=== PATIENT | female | born 1965 | race Caucasian/White ===

== ENCOUNTER 2016-04-03 19:49 | Emergency (ER) | payer OTHER ==
[~2016-04-03] VITALS: Ht 165.1 cm; Wt 60.0 kg
[~2016-04-03 19:49] MED LIST: DIVA250ER PO; SERT-132 PO
[2016-04-03 20:06] VITALS: BP 172/75; PULSE 91; RESP 18; TEMP 97.9; O2SAT 96
[2016-04-03] MEDS ORDERED: LANTINJ SQ (20:15)
[2016-04-03] MEDS ORDERED: ACETAMINOPHEN 325 MG TAB PO ONE (20:15)
[2016-04-03] MEDS ORDERED: GABA600T PO (20:15)
[2016-04-03] MEDS ORDERED: LEVE250 PO (20:15)
[2016-04-03] MEDS ORDERED: VESI5TAB PO (20:15)
[2016-04-03] MEDS ORDERED: TYLE325T PO (20:19)
--- NOTE | 2016-04-03 20:20 | PD ---
HPI Chief Complaint: Fall Time Seen by Provider: 20:09 Travel History International Travel<30 days: No Contact w/Intl Traveler<30days: No Traveled to known affect area: No History of Present Illness HPI The patient is 50 years old. She arrives by EMS after a fall and [employer]. The patient accidentally is tripped over a chair. She fell from standing and struck her right parietal occipital scalp causing swelling and tenderness. There is constant pain in the region of the right scalp. Patient states feels as though there is bleeding coming from the ears. No other complaint is offered. She does not take anticoagulants. She has a history of diabetes. She reports a history of intracranial masses. No vomiting since the fall. + LOC reported with immediate return of consciousness. No incontinence or oropharyngeal trauma. PFSH Past Medical History Arthritis: No Asthma: Yes Autoimmune Disease: No Anxiety: Yes Depression: Yes Heart Rhythm Problems: Yes (TACHYCARDIA) Cancer: No Cardiovascular Problems: Yes High Cholesterol: No Chemotherapy: No Chest Pain: Yes Congestive Heart Failure: No COPD: No Cerebrovascular Accident: No Diabetes: Yes Patient Takes Glucophage: No Diminished Hearing: Yes ([place]) Endocrine: Yes GERD: Yes Genitourinary: Yes (HPV) Hiatal Hernia: No Hypertension: Yes Immune Disorder: No Implanted Vascular Access Dvce: Yes Kidney Stones: No Musculoskeletal: No Neurologic: No Psychiatric: Yes Reproductive: No Respiratory: Yes Migraines: No Radiation Therapy: No Renal Failure: No Seizures: No Sickle Cell Disease: No Sleep Apnea: No Thyroid Disease: No Ulcer: No ?: Not Menopausal: Yes : 2 Para: 1 Miscarriage: 0 : 1 Past Surgical History Abdominal Surgery: No AICD: No Arteriovenous Shunt: No Cardiac Surgery: No Ear Surgery: No Endocrine Surgery: No Eye Surgery: No Genitourinary Surgery: No Gynecologic Surgery: No Insulin Pump: No Joint Replacement: Yes (ANKLE ORIF) Neurologic Surgery: Yes (reports tumor removed from brain?) Oral Surgery: Yes (EXTRACTION OF ALL TEETH WITH MANDIBLE SHAVING) Pacemaker: No Thoracic Surgery: No Tonsillectomy: Yes Other Surgery: Yes Social History Alcohol Use: No Tobacco Use: No Substance Use: No Allergies-Medications (Allergen,Severity, Reaction): Coded Allergies: Iodine (Verified Allergy, Severe, SWELLING, 04/03/16) Patient states that she had the swelling and difficulty breathing after eating fish one time. She has eaten fish since that time with no other difficulties. Morphine (Verified Allergy, Severe, HEART COMPLICATIONS, 04/03/16) *MDRO Multi-Drug Resistant Organism (Verified Adverse Reaction, Unknown, ) ESBL + Klebsiella (urine) - 06/19/14 Reported Meds & Prescriptions Reported Meds & Active Scripts Active Tylenol (Acetaminophen) 325 Mg Tab 650 Mg PO ONCE Reported Keppra (Levetiracetam) 250 Mg Tab 250 Mg PO BID Lantus Solostar Pen Inj (Insulin Glargine) 300 Unit/3 Ml Pen 1 Units SQ SLIDING SCALE Gabapentin 600 Mg Tab 1,200 Mg PO BID Vesicare (Solifenacin) 5 Mg Tab 5 Mg PO DAILY Sertraline (Sertraline HCl) 50 Mg Tab 75 Mg PO DAILY Depakote ER (Divalproex Sodium) 250 Mg Celia 250 Mg PO BID Review of Systems Except as stated in HPI: all other systems reviewed are Neg General / Constitutional: No: Fever Neurologic: Positive: Other (history of neurosurgery secondary to meningioma) Physical Exam Narrative GENERAL: Pleasant 48-year-old female speaking full sentences alert and oriented 3 well-nourished well-developed SKIN: Warm and dry. HEAD: Atraumatic. Normocephalic. Approximately 5 cm cephalhematoma along the right occipital scalp. EYES: Pupils equal and round. No scleral icterus. No injection or drainage. ENT: No nasal bleeding or discharge. Mucous membranes pink and moist. Cerumen in the right ear. TM clearly visualized the left side with no air-fluid level. No ecchymosis about the eyes. NECK: Trachea midline. No JVD. CARDIOVASCULAR: Regular rate and rhythm. No murmur appreciated. RESPIRATORY: No accessory muscle use. Clear to auscultation. Breath sounds equal bilaterally. GASTROINTESTINAL: Abdomen soft, non-tender, nondistended. Hepatic and splenic margins not palpable. MUSCULOSKELETAL: No obvious deformities. No clubbing. No cyanosis. No edema. NEUROLOGICAL: Awake and alert. No obvious cranial nerve deficits. Motor grossly within normal limits. Normal speech. PSYCHIATRIC: Appropriate mood and affect; insight and judgment normal. Data Data Last Documented VS Vital Signs Date Time Temp Pulse Resp B/P Pulse Ox O2 Delivery O2 Flow Rate FiO2 04/03/16 22:08 18 04/03/16 20:58 90 174/72 04/03/16 20:08 Room Air 04/03/16 20:[address] Brain W/O Iv Contrast(Rout) (04/03/16 20:09) Acetaminophen (Tylenol) (04/03/16 20:15) MDM Medical Decision Making Medical Screen Exam Complete: Yes Emergency Medical Condition: Yes Medical Record Reviewed: Yes Differential Diagnosis Contusion, cephalohematoma, closed injury, intracranial hemorrhage, skull fracture Narrative Course Last [address] 04/03/162008 Signed Impressions: Service Date/Time: Sunday, April 03, 2016 20:43 - CONCLUSION: Small right-sided cephalhematoma but no acute fracture. Stable postsurgical changes in the left posterior parietal bone with subjacent encephalomalacia changes. No acute intracranial process. Jaylan Rodriguez MD The patient is resting comfortably and feels better, is alert and in no distress. The patients results and examination findings were discussed. The repeat examination is unremarkable and benign. The history, exam, diagnostic testing, and current condition do not suggest any significant pathology to warrant further testing, continued ED treatment, admission, or surgical evaluation at this point. The vital signs have been stable. The patient does not have uncontrollable pain, intractable vomiting, or other significant symptoms. The patient's condition is stable and appropriate for discharge. The patient will pursue further outpatient evaluation with a primary care physician or other designated or consulting physician as indicated in the discharge instructions. The patient expressed understanding and was agreeable with this plan. Diagnosis Primary Impression: Fall Qualified Code: W19.XXXA - Fall, initial encounter Additional Impressions: Traumatic cephalohematoma Qualified Code: S00.93XA - Traumatic cephalohematoma, initial encounter [facility]I (closed head injury) Qualified Code: S09.90XA - CHI (closed head injury), initial encounter Referrals: DR MALDONADO 2 days Additional Instructions: You have a choice when it comes to health care, and we are glad that you chose [facility]. Hopefully, we have met your expectations on today's visit. You are welcome to return to [facility] at any time, as we are committed to meeting the health care needs of our community. Med/Other Pt SpecificInfo: Prescription(s) given Scripts Acetaminophen (Tylenol)325 Mg Ses004 Mg PO ONCE #1 TAB Ref 0 Prov:Pb Pak MD 04/03/16 Disposition: 01 DISCHARGE HOME Condition: Stable Pb Pak MD Apr 03, 2016 20:20
[2016-04-03 20:58] VITALS: BP 174/72; PULSE 90; RESP 18
--- NOTE | 2016-04-03 21:03 | RADRPT ---
EXAM DATE/TIME: 04/03/2016 20:43 [facility] COMPARISON: CT BRAIN W/O CONTRAST, April 14, 2015, 17:20. INDICATIONS : Trauma; fall. Patient complains of pain in the right occipital region. RADIATION DOSE: 33.49 CTDIvol (mGy) MEDICAL HISTORY : Hypertension. Diabetes mellitus type 2. Cardiovascular disease SURGICAL HISTORY : Craniotomy. ENCOUNTER: Initial ACUITY: 1 day PAIN SCALE: 3/10 LOCATION: cranial TECHNIQUE: Multiple contiguous axial images were obtained of the head. Using automated exposure control and adj ustment of the mA and/or kV according to patient size, radiation dose was kept as low as reasonably a chievable to obtain optimal diagnostic quality images. FINDINGS: CEREBRUM: The ventricles are normal for age. Small area of encephalomalacia in the posterior left temporal lob e subjacent to a prior craniotomy. No evidence of midline shift, mass lesion, hemorrhage or acute inf arction. No extra-axial fluid collections are seen. POSTERIOR FOSSA: The cerebellum and brainstem are intact. The 4th ventricle is midline. The cerebellopontine angle i s unremarkable. EXTRACRANIAL: The visualized portion of the orbits is intact. Small cephalhematoma over the perivertex right assistant pressman ior parietal region SKULL: The calvaria is intact. No evidence of skull fracture. CONCLUSION: Small right-sided cephalhematoma but no acute fracture. Stable postsurgical changes in the left posterior parietal bone with subjacent encephalomalacia de leon es. No acute intracranial process. Jaylan Rodriguez MD on April 03, 2016 at 20:58 Board Certified Radiologist. This report was verified electronically.
[2016-04-03 22:08] VITALS: RESP 18
== END 2016-04-03 22:09 | disposition home or self-care (01) ==
LOC: NEPE 19:49
DX: S06.2X0A Diffuse traumatic brain injury without loss of consciousness, initial encounter (principal); S09.90XA Unspecified injury of head, initial encounter; W18.09XA Striking against other object with subsequent fall, initial encounter; R00.0 Tachycardia, unspecified; I10 Essential (primary) hypertension; Y92.512 Supermarket, store or market as the place of occurrence of the external cause
CPT/HCPCS: 70450

== ENCOUNTER 2016-09-07 12:21 | Emergency (ER) | payer OTHER ==
[~2016-09-07] VITALS: Ht 162.6 cm; Wt 60.0 kg
[~2016-09-07 12:21] MED LIST changes: +GABA600T PO; +LANTINJ SQ; +LEVE250 PO; +TYLE325T PO; +VESI5TAB PO
[2016-09-07 12:23] VITALS: BP 186/98; PULSE 124; RESP 21; TEMP 97.8; O2SAT 100
--- NOTE | 2016-09-07 12:29 | PD ---
Physical Exam Date Seen by Provider: Sep 07, 2016 Time Seen by Provider: 12:25 Data Data Last Documented VS Vital Signs Date Time Temp Pulse Resp B/P Pulse Ox O2 Delivery O2 Flow Rate FiO2 09/07/16 12:23 97.8 124 21 186/98 100 MDM Supervised Visit with DIAZ: No Narrative Course 50 YO F with complaint of forgetfulness, tremor, ataxia, stuttering x 1 month. Unsure of chronicity of onset. Denies pain, ROQUE, CP. Hx brain lesion, insulin dependant DM. Followed by Dr. Patel, neuro. Vitals reviewed. Patient seen in triage, awaiting bed placement. Yandy Cheatham Sep 07, 2016 12:29
[2016-09-07 13:53] VITALS: BP 133/80; PULSE 78; RESP 18; O2SAT 98
--- NOTE | 2016-09-07 14:03 | PD ---
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 The patient states that since she had the meningioma resection she has had some degree of memory loss however states that this has been worsening over the past month. States that today she got lost on her way to work which she goes to work every day and takes the same route every day. States that she became very flustered and upset and her coworker called her rehabilitation doctor Dr. Patel and she was instructed to come to the emergency department. The patient states that she's had worsening speech and stuttering recently as well. She denies any fever, chills, nausea, vomiting, diarrhea, abdominal pain, chest pain, shortness of breath, headache, dizziness, numbness or tingling, one-sided weakness. Denies any anticoagulation. States that she had an MRI within the last year. PCP Dr. Miranda. No other complaints. PFSH Past Medical History Arthritis: No Asthma: Yes Autoimmune Disease: No Anxiety: Yes Depression: Yes Heart Rhythm Problems: Yes (TACHYCARDIA) Cancer: No Cardiovascular Problems: Yes High Cholesterol: No Chemotherapy: No Chest Pain: Yes Congestive Heart Failure: No COPD: No Cerebrovascular Accident: No Diabetes: Yes Patient Takes Glucophage: No Diminished Hearing: Yes ([place]) Endocrine: Yes Gastrointestinal Disorders: No GERD: Yes Genitourinary: Yes (HPV) Headaches: No Hiatal Hernia: No Heparin Induced Thrombocytopen: No Hypertension: Yes Immune Disorder: No Implanted Vascular Access Dvce: Yes Kidney Stones: No Musculoskeletal: No Neurologic: No Psychiatric: Yes Reproductive: No Respiratory: Yes Migraines: No Radiation Therapy: No Renal Failure: No Seizures: No Sickle Cell Disease: No Sleep Apnea: No Thyroid Disease: No Ulcer: No ?: Not Menopausal: Yes : 2 Para: 1 Miscarriage: 0 : 1 Past Surgical History Abdominal Surgery: No AICD: No Arteriovenous Shunt: No Cardiac Surgery: No Ear Surgery: No Endocrine Surgery: No Eye Surgery: No Genitourinary Surgery: No Gynecologic Surgery: No Insulin Pump: No Joint Replacement: Yes (ANKLE ORIF) Neurologic Surgery: Yes (reports tumor removed from brain?) Oral Surgery: Yes (EXTRACTION OF ALL TEETH WITH MANDIBLE SHAVING) Pacemaker: No Thoracic Surgery: No Tonsillectomy: Yes Other Surgery: Yes Social History Alcohol Use: No Tobacco Use: No Substance Use: No Allergies-Medications (Allergen,Severity, Reaction): Coded Allergies: Iodine (Verified Allergy, Severe, SWELLING, 09/07/16) Patient states that she had the swelling and difficulty breathing after eating fish one time. She has eaten fish since that time with no other difficulties. Morphine (Verified Allergy, Severe, HEART COMPLICATIONS, 09/07/16) *MDRO Multi-Drug Resistant Organism (Verified Adverse Reaction, Unknown, ) ESBL + Klebsiella (urine) - 06/19/14 Reported Meds & Prescriptions Reported Meds & Active Scripts Active Tylenol (Acetaminophen) 325 Mg Tab 650 Mg PO ONCE Reported Keppra (Levetiracetam) 250 Mg Tab 250 Mg PO BID Lantus Solostar Pen Inj (Insulin Glargine) 300 Unit/3 Ml Pen 1 Units SQ SLIDING SCALE Gabapentin 600 Mg Tab 1,200 Mg PO BID Vesicare (Solifenacin) 5 Mg Tab 5 Mg PO DAILY Sertraline (Sertraline HCl) 50 Mg Tab 75 Mg PO DAILY Depakote ER (Divalproex Sodium) 250 Mg Celia 250 Mg PO BID Review of Systems Except as stated in HPI: all other systems reviewed are Neg Physical Exam Narrative GENERAL: Well-nourished and well-developed pleasant female patient in no acute distress however she is slightly anxious and upset. SKIN: Warm and dry. HEAD: Normocephalic and atraumatic. EYES: No injection, drainage, or hyphema noted. PERRLA. EOMI. ENT: No nasal drainage noted. Oropharynx is clear. NECK: Supple and the trachea is midline. CARDIOVASCULAR: Regular rate and rhythm. RESPIRATORY: Breath sounds are equal bilaterally with no accessory muscle use, wheezing, rhonchi, or crackles. GASTROINTESTINAL: Abdomen is soft, non-tender, and nondistended. MUSCULOSKELETAL: No obvious deformities, swelling, cyanosis, or ecchymosis is present throughout the upper and lower extremities. Patient has full range of motion without any signs of neurovascular compromise. Strength 5/5 upper and lower extremities equal bilaterally. NEUROLOGICAL: Awake, alert, and oriented. Speech impediment however clear fluent speech. Normal gait. Normal finger to nose test. Normal rapid alternating movements. Normal [id number] test. Cranial nerves are grossly intact. Data Data Last Documented VS Vital Signs Date Time Temp Pulse Resp B/P Pulse Ox O2 Delivery O2 Flow Rate FiO2 09/07/16 14:35 85 15 132/76 99 Room Air 09/07/16 12:23 97.8 Orders Complete Blood Count With Diff (09/07/16 14:01) Comprehensive Metabolic Panel (09/07/16 14:01) Prothrombin Time / Inr (Pt) (09/07/16 14:01) Act Partial Throm Time (Ptt) (09/07/16 14:01) Urinalysis - C+S If Indicated (09/07/16 14:01) Ct Brain W/O Iv Contrast(Rout) (09/07/16 14:01) Blood Glucose (09/07/16 14:01) Ecg Monitoring (09/07/16 14:01) Iv Access Insert/Monitor (09/07/16 14:01) Oximetry (09/07/16 14:01) Sodium Chloride 0.9% Flush (Ns Flush) (09/07/16 14:15) Insulin Human Regular Inj (Novolin R Inj (09/07/16 15:15) Labs Laboratory Tests Test 09/07/16 09/07/16 14:30 16:00 Prothrombin Time 10.2 SEC Prothromb Time International 0.9 RATIO Ratio Activated Partial 23.7 SEC Thromboplast Time Urine Color LIGHT-YELLOW Urine Turbidity CLEAR Urine pH 7.0 Urine Specific [place] 1.033 Urine Protein NEG mg/dL Urine Glucose (UA) 1000 mg/dL Urine Ketones NEG mg/dL Urine Occult Blood NEG Urine Nitrite NEG Urine Bilirubin NEG Urine Urobilinogen LESS THAN 2.0 MG/DL Urine Leukocyte Esterase NEG Urine RBC LESS THAN 1 /hpf Urine WBC LESS THAN 1 /hpf Urine Squamous Epithelial 2 /hpf Cells Urine Mucus FEW /lpf Microscopic Urinalysis Comment CATH-CULT NOT IND Sodium Level 137 MEQ/L Potassium Level 4.8 MEQ/L Chloride Level 106 MEQ/L Carbon Dioxide Level 23.3 MEQ/L Anion Gap 8 MEQ/L Blood Urea Nitrogen 12 MG/DL Creatinine 0.90 MG/DL Estimat Glomerular Filtration 66 ML/MIN Rate Random Glucose 471 MG/DL Calcium Level 8.4 MG/DL Total Bilirubin 0.4 MG/DL Aspartate Amino Transf 18 U/L (AST/SGOT) Alanine Aminotransferase 13 U/L (ALT/SGPT) Alkaline Phosphatase 87 U/L Total Protein 7.1 GM/DL Albumin 3.2 GM/DL White Blood Count 6.3 TH/MM3 Red Blood Count 4.53 MIL/MM3 Hemoglobin 13.8 GM/DL Hematocrit 42.5 % Mean Corpuscular Volume 93.9 FL Mean Corpuscular Hemoglobin 30.5 PG Mean Corpuscular Hemoglobin 32.5 % Concent Red Cell Distribution Width 14.2 % Platelet Count 235 TH/MM3 Mean Platelet Volume 8.5 FL Neutrophils (%) (Auto) 50.4 % Lymphocytes (%) (Auto) 35.9 % Monocytes (%) (Auto) 10.9 % Eosinophils (%) (Auto) 2.3 % Basophils (%) (Auto) 0.5 % Neutrophils # (Auto) 3.2 TH/MM3 Lymphocytes # (Auto) 2.2 TH/MM3 Monocytes # (Auto) 0.7 TH/MM3 Eosinophils # (Auto) 0.1 TH/MM3 Basophils # (Auto) 0.0 TH/MM3 CBC Comment DIFF FINAL Differential Comment MDM Medical Decision Making Medical Screen Exam Complete: Yes Emergency Medical Condition: Yes Differential Diagnosis Anxiety versus mood disorder versus impaired cognition versus brain mass versus edema Narrative Course 50-year-old female with a history of atypical meningioma brain mass status post resection presents to the emergency department for evaluation of memory loss and stuttering speech. Patient is afebrile. She was initially tachycardic in triage with a heart rate of 124 bpm. Now her heart rate is 78 bpm. Otherwise vital signs within normal limits. Physical examination is essentially unremarkable. No focal neurologic deficits. IV access was obtained, labs have been drawn and sent. Patient is placed on cardiac telemetry of pulse oximetry monitoring. CT of the head is been ordered and is pending. CBC is unremarkable. CMP shows hyperglycemia with a glucose of 471 otherwise unremarkable. Coags are unremarkable. Urinalysis shows glucosuria and few mucus but is otherwise unremarkable. Head CT is negative for any acute abnormalities. Labs and imaging are reassuring, no acute abnormalities noted besides patient's hyperglycemia. She is reporting that her sugar is typically around 300-400. Patient is administered 10 units of regular insulin subcutaneously. The patient 's memory loss and anxiety is likely secondary to her meningioma and postop complications. She is advised to follow up as an outpatient with her primary care physician. Patient verbalizes understanding and agreement with treatment plan. I discussed the case with my attending physician Dr. Mccollum who is aware of the patients history, physical examination findings, and treatment plan. Diagnosis Primary Impression: Memory difficulties Additional Impressions: Hyperglycemia Atypical meningioma of brain Referrals: Primary Care Physician Patient Instructions: General Instructions, Memory Loss in Older Adults (GEN) Additional Instructions: Follow-up with your Primary Care Physician. Return to the ED for any acute worsening of symptoms. Med/Other Pt SpecificInfo: No Change to Meds Disposition: 01 DISCHARGE HOME Condition: Stable Kaylen Bingham Sep 07, 2016 14:03
[2016-09-07] MEDS ORDERED: SODIUM CHLORIDE 0.9% FLUSH 5 ML FLUSH IV FLUSH PRN (14:15)
[2016-09-07 14:35] VITALS: BP 132/76; PULSE 85; RESP 15; O2SAT 99
[2016-09-07 14:45] LABS: BLOOD, URINE NEG (NEG); COMMENT (UR) CATH-CULT NOT IND; CULTURE IF INDICATED CATH CULTURE NOT IND; GLUCOSE,URINE 1000 mg/dL (NEG); KETONE, URINE NEG (NEG); MUCUS URINE FEW /lpf (OCC); NITRITE,URINE NEG (NEG); SQUAMOUS EPITHELIAL CELL URINE 2 /hpf (0-5); URINE COLOR LIGHT-YELLOW (YELLW/STRAW)
--- NOTE | 2016-09-07 14:50 | RADRPT ---
EXAM DATE/TIME: 09/07/2016 14:36 [facility] COMPARISON: CT BRAIN W/O CONTRAST, April 03, 2016, 20:43. INDICATIONS : Evaluate for altered mental status. RADIATION DOSE: 56.35 CTDIvol (mGy) MEDICAL HISTORY : Hypertension. Cardiovascular disease Tachycardia, History of brain lesion. SURGICAL HISTORY : Craniotomy. ENCOUNTER: Initial ACUITY: 1 month PAIN SCALE: 3/10 LOCATION: Bilateral cranial TECHNIQUE: Multiple contiguous axial images were obtained of the head. Using automated exposure control and adj ustment of the mA and/or kV according to patient size, radiation dose was kept as low as reasonably a chievable to obtain optimal diagnostic quality images. DICOM format image data is available electro nically for review and comparison. FINDINGS: Stable old left occipital and remote craniotomy changes in this region are identified. No acute fract ures or there is a right parietal calcified meningioma suspected, unchanged with no underlying edema. No evidence of intracranial hemorrhage or acute infarction. CONCLUSION: No acute disease. Gareth Bronson MD on September 07, 2016 at 14:44 Board Certified Radiologist. This report was verified electronically.
[2016-09-07 14:56] LABS: APTT (PATIENT) 23.7 SEC (24.3-30.1); INTERNATIONAL NORMALIZED RATIO 0.9 RATIO; PROTHROMBIN TIME - PATIENT 10.2 SEC (9.8-11.6)
[2016-09-07 14:58] LABS: ALKALINE PHOSPHATASE 87 U/L (45-117); ALT (GPT) 13 U/L (10-53); ANION GAP 8 MEQ/L (5-15); AST (GOT) 18 U/L (15-37); BICARBONATE 23.3 MEQ/L (21.0-32.0); BLOOD UREA NITROGEN 12 MG/DL (7-18); CHLORIDE 106 MEQ/L (98-107); GLOMERULAR FILTRATION RATE 66 ML/MIN (>89); POTASSIUM 4.8 MEQ/L (3.5-5.1); SODIUM (NA) 137 MEQ/L (136-145); TOTAL BILIRUBIN ADULT 0.4 MG/DL (0.2-1.0)
[2016-09-07] MEDS ORDERED: INSULIN HUMAN REGULAR 1,000 UNITS/10 ML VIAL SQ ONE (15:15)
[2016-09-07 16:20] LABS: AUTOMATED NEUTROPHIL # 3.2 TH/MM3 (1.8-7.7); BASOPHIL % 0.5 % (0.0-2.0); EOSINOPHIL # 0.1 TH/MM3 (0-0.4); EOSINOPHIL % 2.3 % (0.0-4.0); HEMATOCRIT 42.5 % (35.0-46.0); HEMO FLAGS DIFF FINAL; LYMPH % 35.9 % (9.0-44.0); LYMPHOCYTE # 2.2 TH/MM3 (1.0-4.8); MEAN CELL VOLUME 93.9 FL (80.0-100.0); MEAN CORPUSCULAR HEMOGLOBIN 30.5 PG (27.0-34.0); MEAN CORPUSCULAR HGB CONC 32.5 % (32.0-36.0); MONO % 10.9 % (0.0-8.0); NEUT % 50.4 % (16.0-70.0); PLATELET COUNT 235 TH/MM3 (150-450); RED BLOOD COUNT 4.53 MIL/MM3 (4.00-5.30); RED CELL DISTRIBUTION WIDTH 14.2 % (11.6-17.2); WHITE BLOOD COUNT 6.3 TH/MM3 (4.0-11.0)
[2016-09-07 16:37] VITALS: BP 132/76
== END 2016-09-07 16:53 | disposition home or self-care (01) ==
LOC: NEPC 12:21
DX: D32.0 Benign neoplasm of cerebral meninges (principal); I10 Essential (primary) hypertension; F98.5 Adult onset fluency disorder; R56.9 Unspecified convulsions; E11.40 Type 2 diabetes mellitus with diabetic neuropathy, unspecified; E11.65 Type 2 diabetes mellitus with hyperglycemia; R00.0 Tachycardia, unspecified; Z79.4 Long term (current) use of insulin; Z98.890 Other specified postprocedural states
CPT/HCPCS: 70450; 80053; 81001; 85025; 85610; 85730; 96372; 99285; J1815

== ENCOUNTER 2016-09-16 08:51 | Inpatient (IN) | payer OTHER ==
[~2016-09-16] VITALS: Ht 160 cm; Wt 71.7 kg
[2016-09-16 09:02] VITALS: BP 164/78; PULSE 89; RESP 21; TEMP 98.7; O2SAT 100
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
[2016-09-16] MEDS ORDERED: ONDANSETRON HCL 4 MG/2 ML VIAL IV ONE (10:30)
[2016-09-16] MEDS ORDERED: SODIUM CHLOR 0.9% 1000 ML INJ 1,000 ML IV ONE (10:30)
[2016-09-16] MEDS ORDERED: HYDROmorphone HCL PF 1 MG/ML VIAL IVS ONE ×2 (10:30→12:45)
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
[2016-09-16 10:54] LABS: AUTOMATED NEUTROPHIL # 6.4 TH/MM3 (1.8-7.7); BASOPHIL % 0.4 % (0.0-2.0); EOSINOPHIL # 0.1 TH/MM3 (0-0.4); HEMO FLAGS DIFF FINAL; LYMPH % 14.9 % (9.0-44.0); LYMPHOCYTE # 1.3 TH/MM3 (1.0-4.8); MEAN CELL VOLUME 92.5 FL (80.0-100.0); MEAN CORPUSCULAR HEMOGLOBIN 30.7 PG (27.0-34.0); MEAN CORPUSCULAR HGB CONC 33.2 % (32.0-36.0); MONO % 8.8 % (0.0-8.0); NEUT % 74.9 % (16.0-70.0); PLATELET COUNT 233 TH/MM3 (150-450); RED BLOOD COUNT 4.32 MIL/MM3 (4.00-5.30); RED CELL DISTRIBUTION WIDTH 13.9 % (11.6-17.2); WHITE BLOOD COUNT 8.6 TH/MM3 (4.0-11.0)
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
[2016-09-16 11:15] LABS: BICARBONATE 24.8 MEQ/L (21.0-32.0)
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
[2016-09-16] MEDS ORDERED: LACTULOSE SYRUP 20 GM/30 ML CUP PO PRN (13:30)
[2016-09-16] MEDS ORDERED: SENNOSIDES 8.6 MG TAB PO PRN (13:30)
[2016-09-16] MEDS ORDERED: SODIUM CHLORIDE 0.9% FLUSH 10 ML FLUSH IV FLUSH PRN (13:30)
[2016-09-16] MEDS ORDERED: ACETAMINOPHEN 325 MG TAB PO PRN (13:30)
[2016-09-16] MEDS ORDERED: NALOXONE HCL 0.4 MG/ML AMP IV PRN (13:30)
[2016-09-16] MEDS ORDERED: MAGNESIUM HYDROXIDE SUSP 30 ML CUP PO PRN (13:30)
[2016-09-16] MEDS ORDERED: MORPHINE SULFATE 4 MG/ML INJ IV PUSH PRN (13:30)
[2016-09-16] MEDS ORDERED: BISACODYL 10 MG SUPP RECTAL PRN (13:30)
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
[2016-09-16] MEDS ORDERED: GLUCAGON 1 MG/ML VIAL OTHER PRN (14:30)
[2016-09-16] MEDS ORDERED: SODIUM CHLOR 0.9% 1000 ML INJ 1,000 ML IV SCH (14:30)
[2016-09-16] MEDS ORDERED: DEXTROSE 50% IN WATER 50 ML VIAL(D50) IV PUSH PRN (14:30)
[2016-09-16 15:00] VITALS: BP 148/73; PULSE 111; RESP 10; O2SAT 95
[2016-09-16] MEDS: INSULIN NovoLIN REGULAR SUPPLEMENTAL SCALE SQ SCH ×2 (16:00→21:00)
[2016-09-16] MEDS ORDERED: GENTAMICIN SULFATE 80 MG/2 ML VIAL ONE (17:17)
[2016-09-16] MEDS: ONDANSETRON HCL 4 MG/2 ML VIAL IVP PRN (17:25)
[2016-09-16] MEDS ORDERED: VANCOMYCIN HCL 1000 MG VIAL ONE (17:54)
[2016-09-16] MEDS ORDERED: FLUMAZENIL 0.5 MG/5 ML VIAL IV PUSH PRN (18:00)
[2016-09-16] MEDS ORDERED: DO NOT ADM ANY ANTICOAGULANT DRUGS PRN (18:44)
[2016-09-16] MEDS ORDERED: Post-op Orders (for Pharmacy) MISC XX ONE (18:45)
[2016-09-16] MEDS ORDERED: SODIUM CHLORIDE 0.9% FLUSH 5 ML FLUSH IVF PRN (18:45)
[2016-09-16] MEDS ORDERED: diphenhydrAMINE HCL 25 MG CAP PO PRN (18:45)
--- NOTE | 2016-09-16 18:45 | PD.OP ---
cc: James Cleaning MD Operative Report Date of Surgery: Sep 16, 2016 Preoperative Diagnosis: Right tibia bicondylar plateau fracture Postoperative Diagnosis: Procedure: Closed reduction right tibial plateau fracture, external fixation right lower extremity Anesthesia: Gen. Surgeon: James Cleaning Solder Technician(s): SEBASTIEN Kim PA-C The surgical procedure was assisted by my physician construction management assistant. My P.A. presence was necessary throughout this case for the manipulation and positioning of the surgical extremity. My P.A. was assisting me throughout the duration of this procedure. The skill set of a physician construction management assistant was medically necessary to complete this procedure. During the surgical case the ruling technician was working at the back table and the physician construction management assistant was directly assisting me. Operation and Findings: This patient sustained an injury resulting in comminuted fractures of [right tibia plateau]. Patient was seen and evaluated preoperatively and found to have too much swelling to proceed with open reduction internal fixation. Risk and benefits of surgery were discussed in depth with patient and informed consent was confirmed. Surgical site was marked. Patient was brought to operating room and placed on the OR table. Patient was given IV sedation and GETA. Patient received IV antibiotics and timeout procedure was performed. Operative leg was prepped with alcohol followed by Hibiclens and draped in the usual sterile fashion. Two small incisions were made along the anterior femur and the tibia. Soft tissue was dissected bluntly. Cannulas were placed down to the cortex of bone. Pin sites were predrilled. Synthes ROQUE-coated pins were placed into the femur and tibia. Fluoroscopy was used to confirm appropriate pin placement. An external fixator construct was now created with clamps and bars. Next attention was turned to reduction. Traction was applied. Fracture was manipulated. Good alignment of the fracture was obtained. Fluoroscopy was used to confirm appropriate alignment of fracture. The external fixator was now tightened to hold reduction. Sterile dressings were applied. Patient was awakened and transferred to recovery room in stable condition. The soft tissue was reevaluated. Patient did have swelling around the knee and calf but compartments were soft and compressible with no signs of compartment syndrome. James Cleaning MD Sep 16, 2016 18:45
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
[2016-09-16] MEDS ORDERED: MIDAZOLAM HCL 2 MG/2 ML VIAL ONE (18:55)
[2016-09-16] MEDS ORDERED: fentaNYL CITRATE 250 MCG/5 ML AMP ONE (18:56)
[2016-09-16 19:00] VITALS: O2SAT 98
[2016-09-16] MEDS ORDERED: *MEPERIDINE 25 MG INJ VIAL PERIprocedural Use ONLY ONE (19:06)
--- NOTE | 2016-09-16 19:26 | RADRPT ---
EXAM DATE/TIME: 09/16/2016 18:24 [facility] COMPARISON: TIBIA/FIBULA RIGHT (AP/LAT), September 16, 2016, 10:50. INDICATIONS : External fixation of right tibial plateau. MEDICAL HISTORY : None. SURGICAL HISTORY : None. ENCOUNTER: Initial ACUITY: 1 day PAIN SCORE: Non-responsive. LOCATION: Right Tib/fib. FINDINGS: 2 images are recorded digitally the operating room using C-arm. There is a transverse fracture of th e proximal diametaphysis of the tibia with mild anterior angulation. CONCLUSION: Intraoperative images. Alvaro Madden MD on September 16, 2016 at 19:22 Board Certified Radiologist. This report was verified electronically.
[2016-09-16] MEDS: RESP: ALBUTEROL 2.5 MG/IPRATROPIUM 0.5 MG NEB (SCH) NEB ×2 (19:36→23:32)
[2016-09-16] MEDS: LACTATED RINGER'S 1000 ML INJ 1,000 ML IV SCH ×2 (20:00→22:46)
[2016-09-16] MEDS ORDERED: MULTIVITAMIN INJ 10 ML, FOLIC ACID INJ 1 MG in SODIUM CHLORID 0.9% 500 ML INJ 500 ML IV SCH (20:00)
[2016-09-16] MEDS ORDERED: THIAMINE INJ 100 MG in SODIUM CHLORIDE 0.9% INJ 100 ML IV SCH (20:00)
[2016-09-16 21:00] VITALS: BP 145/89; PULSE 104; RESP 18; TEMP 97.9; O2SAT 99
[2016-09-16] MEDS: SODIUM CHLORIDE 0.9% FLUSH 5 ML FLUSH IVF SCH (21:00)
[2016-09-16] MEDS ORDERED: SODIUM CHLORIDE 0.9% FLUSH 10 ML FLUSH IV FLUSH SCH (21:00)
[2016-09-16] MEDS: DOCUSATE SODIUM 50 MG/SENNA 8.6 MG TAB PO SCH (21:00)
[2016-09-16 22:45] LABS: HDL CHOLESTEROL 51.5 MG/DL (40.0-60.0)
[2016-09-16] MEDS: GABAPENTIN 400 MG CAP PO SCH (22:48)
[2016-09-16] MEDS: levETIRAcetam 250 MG TAB PO SCH (22:48)
[2016-09-16] MEDS: ACETAMINOPHEN/HYDROcodone 325 MG/10 MG TAB PO PRN (22:48)
[2016-09-16] MEDS: guaiFENesin E.R. 600 MG TAB PO SCH (22:49)
[2016-09-16] MEDS: KETOROLAC TROMETHAMINE 30 MG/ML (IVP) VIAL IVP SCH (22:50)
[2016-09-16] MEDS: DIVALPROEX SODIUM E.R. 250 MG TAB PO SCH (22:50)
[2016-09-17] VITALS (7 sets, daily range): BP systolic 98–156; BP diastolic 60–79; PULSE 83–100; RESP 16–19; TEMP 97–99.9; O2SAT 92–100
[2016-09-17] MEDS: RESP: ALBUTEROL 2.5 MG/IPRATROPIUM 0.5 MG NEB (SCH) NEB ×6 (02:58→23:11)
[2016-09-17] MEDS: ACETAMINOPHEN/HYDROcodone 325 MG/10 MG TAB PO PRN ×3 (04:46→17:06)
[2016-09-17] MEDS: KETOROLAC TROMETHAMINE 30 MG/ML (IVP) VIAL IVP SCH ×3 (06:33→21:38)
[2016-09-17] MEDS: INSULIN NovoLIN REGULAR SUPPLEMENTAL SCALE SQ SCH ×4 (06:34→21:50)
--- NOTE | 2016-09-17 06:52 | PD.ORT.PN ---
Subjective Subjective Remarks POd 1 s/p exfix right tibial plateau fx -doing well. pain controlled. no complaints. Objective Vitals Vital Signs Date Time Temp Pulse Resp B/P Pulse Ox O2 Delivery O2 Flow Rate FiO2 09/17/16 00:10 98.2 100 18 156/79 100 09/16/16 23:32 Nasal Cannula 09/16/16 21:00 97.9 104 18 145/89 99 09/16/16 20:15 98.8 106 12 147/85 98 Nasal Cannula 2 09/16/16 20:00 105 12 152/82 98 Nasal Cannula 2 09/16/16 19:45 111 12 157/81 99 Nasal Cannula 3 09/16/16 19:30 114 12 156/76 100 Nasal Cannula 3 09/16/16 19:15 108 12 170/81 99 Nasal Cannula 4 09/16/16 19:00 106 10 163/87 98 Nasal Cannula 4 09/16/16 18:47 96.9 99 10 133/69 98 Nasal Cannula 4 09/16/16 15:00 111 10 148/73 95 Nasal Cannula 2 09/16/16 09:02 98.7 89 21 164/78 100 I/O 09/16/16 09/16/16 09/16/16 09/17/16 09/17/16 09/17/16 07:00 15:00 23:00 07:00 15:00 23:00 Intake Total 1620 ml 480 ml Output Total 100 ml Balance 1520 ml 480 ml Intake Oral 520 ml 480 ml IV Total 100 ml Other 1000 ml Output Urine Total 50 ml Estimated Blood Loss 50 ml # Voids 4 5 # Bowel Movements 1 1 Result Diagram: 09/16/16 1020 09/16/16 1020 Objective Remarks RLE: +exfix. pin sites clean. NVI with good dorsiflexion. +swelling but compartments soft Assessment & Plan Assessment and Plan 1) right Tibial Plateau fx s/p exfix - POD 1 -NWB -elevate -pin care BID -ice -npo after MN tuesday -plan for potential surgery tuesday -hold lovenox after Tuesday AM dose Chucho Rees Sep 17, 2016 06:52
[2016-09-17 07:25] LABS: HEMATOCRIT 34.7 % (35.0-46.0); REVIEW FLAG FINAL
[2016-09-17] MEDS: SODIUM CHLORIDE 0.9% FLUSH 5 ML FLUSH IVF SCH ×2 (09:00→21:38)
[2016-09-17 09:30] LABS: AUTOMATED NEUTROPHIL # 6.4 TH/MM3 (1.8-7.7); BASOPHIL % 0.2 % (0.0-2.0); EOSINOPHIL % 0.2 % (0.0-4.0); HEMATOCRIT 33.2 % (35.0-46.0); HEMO FLAGS DIFF FINAL; LYMPHOCYTE # 1.9 TH/MM3 (1.0-4.8); MEAN CELL VOLUME 93.8 FL (80.0-100.0); MEAN CORPUSCULAR HEMOGLOBIN 30.5 PG (27.0-34.0); MEAN CORPUSCULAR HGB CONC 32.5 % (32.0-36.0); MONO % 15.5 % (0.0-8.0); NEUT % 65.1 % (16.0-70.0); PLATELET COUNT 215 TH/MM3 (150-450); RED BLOOD COUNT 3.54 MIL/MM3 (4.00-5.30); RED CELL DISTRIBUTION WIDTH 13.9 % (11.6-17.2); WHITE BLOOD COUNT 9.8 TH/MM3 (4.0-11.0)
[2016-09-17 09:57] LABS: BICARBONATE 24.4 MEQ/L (21.0-32.0); POTASSIUM 3.3 MEQ/L (3.5-5.1)
[2016-09-17] MEDS: GABAPENTIN 400 MG CAP PO SCH ×2 (09:59→21:38)
[2016-09-17] MEDS: TOLTERODINE TARTRATE 2 MG CAP LA PO SCH (09:59)
[2016-09-17] MEDS: guaiFENesin E.R. 600 MG TAB PO SCH ×2 (09:59→21:38)
[2016-09-17] MEDS: levETIRAcetam 250 MG TAB PO SCH ×2 (09:59→21:38)
[2016-09-17] MEDS: DOCUSATE SODIUM 50 MG/SENNA 8.6 MG TAB PO SCH ×2 (09:59→21:38)
[2016-09-17] MEDS: FOLIC ACID 1 MG TAB PO SCH (09:59)
[2016-09-17] MEDS: DIVALPROEX SODIUM E.R. 250 MG TAB PO SCH ×2 (10:00→21:38)
[2016-09-17] MEDS: SERTRALINE HCL 50 MG TAB PO SCH (10:00)
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
--- NOTE | 2016-09-17 13:40 | EKG ---
Date Performed: 09/16/2016 Time Performed: 15:37:09 PTAGE: 50 years EKG: SINUS TACHYCARDIA BORDERLINE LEFT AXIS DEVIATION LOW QRS VOLTAGE IN PRECORDIAL LEADS NONSPE CIFIC T-WAVE ABNORMALITY ABNORMAL RHYTHM ECG Compared to prior tracing no significant change PREVIOUS TRACING : 06/20/2014 18.39 DOCTOR: Ck Mathews Interpretating Date/Time 09/17/2016 13:35:00
[2016-09-17 15:19] LABS: HEMOGLOBIN A1a 1.3 %; HEMOGLOBIN A1b 0.9 %; HEMOGLOBIN Ao 79.5 %; HEMOGLOBIN F 1.5 %; HEMOGLOBIN LA1C 1.8 %
[2016-09-17] MEDS: ONDANSETRON HCL 4 MG/2 ML VIAL IVP PRN (17:05)
[2016-09-17] MEDS: RIVAROXABAN 10 MG TAB PO SCH (17:33)
[2016-09-17] MEDS ORDERED: ENOXAPARIN SODIUM 40 MG/0.4 ML SYRINGE SQ SCH (18:00)
[2016-09-18] VITALS (7 sets, daily range): BP systolic 119–140; BP diastolic 63–81; PULSE 58–110; RESP 16–18; TEMP 97.1–99.7; O2SAT 92–99
[2016-09-18] MEDS: RESP: ALBUTEROL 2.5 MG/IPRATROPIUM 0.5 MG NEB (SCH) NEB ×5 (03:25→20:24)
[2016-09-18] MEDS: INSULIN NovoLIN REGULAR SUPPLEMENTAL SCALE SQ SCH ×4 (06:12→20:57)
[2016-09-18 08:17] LABS: AUTOMATED NEUTROPHIL # 7.1 TH/MM3 (1.8-7.7); BASOPHIL # 0.1 TH/MM3 (0-0.2); BASOPHIL % 0.6 % (0.0-2.0); EOSINOPHIL # 0.1 TH/MM3 (0-0.4); EOSINOPHIL % 1.2 % (0.0-4.0); HEMATOCRIT 41.2 % (35.0-46.0); HEMO FLAGS DIFF FINAL; LYMPH % 9.2 % (9.0-44.0); LYMPHOCYTE # 0.9 TH/MM3 (1.0-4.8); MEAN CELL VOLUME 93.4 FL (80.0-100.0); MEAN CORPUSCULAR HEMOGLOBIN 30.3 PG (27.0-34.0); MEAN CORPUSCULAR HGB CONC 32.4 % (32.0-36.0); MONO % 13.2 % (0.0-8.0); NEUT % 75.8 % (16.0-70.0); PLATELET COUNT 169 TH/MM3 (150-450); RED BLOOD COUNT 4.41 MIL/MM3 (4.00-5.30); RED CELL DISTRIBUTION WIDTH 13.7 % (11.6-17.2); WHITE BLOOD COUNT 9.3 TH/MM3 (4.0-11.0)
--- NOTE | 2016-09-18 08:40 | PD.ORT.PN ---
Subjective Subjective Remarks Moderate right leg cramping and spasms. Feels like she 'needs to adjust her leg '. No new nausea, abd pain, CP or SOB. Questions about surgery. Objective Vitals Vital Signs Date Time Temp Pulse Resp B/P Pulse Ox O2 Delivery O2 Flow Rate FiO2 09/18/16 04:00 97.1 58 16 122/63 99 09/18/16 00:11 101 09/18/16 00:00 97.3 100 16 134/75 92 09/18/16 00:00 98.3 92 17 137/73 93 09/17/16 20:06 98 09/17/16 20:00 21 09/17/16 19:00 97.3 100 16 134/75 92 09/17/16 15:27 97.4 85 19 124/73 96 09/17/16 11:30 97.1 83 19 108/69 99 I/O 09/17/16 09/17/16 09/17/16 09/18/16 09/18/16 09/18/16 07:00 15:00 23:00 07:00 15:00 23:00 Intake Total 480 ml 550 ml 480 ml 240 ml Balance 480 ml 550 ml 480 ml 240 ml Intake Oral 480 ml 550 ml 480 ml 240 ml # Voids 5 10 1 1 # Bowel Movements 1 0 0 0 Result Diagram: 09/18/16 0720 09/17/16 0918 Objective Remarks Laying in bed Anxious VSS RLE Dressings / ExFix in place, pin sites clean/dressed, swelling ankle foot +wiggles toes, sensation intact but somewhat diminished, +nvi Assessment & Plan Assessment and Plan 1) right Tibial Plateau fx s/p exfix - POD 2 -NWB RLE. - Continue to elevate, Ice -pin care BID -npo after MN tuesday, poss ORIF tuesday -hold lovenox after Tuesday AM dose Azeb Cai Sep 18, 2016 08:40
[2016-09-18] MEDS: SODIUM CHLORIDE 0.9% FLUSH 5 ML FLUSH IVF SCH ×2 (09:00→20:57)
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
[2016-09-18] MEDS: guaiFENesin E.R. 600 MG TAB PO SCH ×2 (10:18→20:56)
[2016-09-18] MEDS: GABAPENTIN 400 MG CAP PO SCH ×2 (10:18→20:56)
[2016-09-18] MEDS: FOLIC ACID 1 MG TAB PO SCH (10:18)
[2016-09-18] MEDS: RIVAROXABAN 10 MG TAB PO SCH (10:18)
[2016-09-18] MEDS: DOCUSATE SODIUM 50 MG/SENNA 8.6 MG TAB PO SCH ×2 (10:18→20:56)
[2016-09-18] MEDS: SERTRALINE HCL 50 MG TAB PO SCH (10:19)
[2016-09-18] MEDS: ACETAMINOPHEN/HYDROcodone 325 MG/10 MG TAB PO PRN ×2 (10:19→20:56)
[2016-09-18] MEDS: TOLTERODINE TARTRATE 2 MG CAP LA PO SCH (10:31)
[2016-09-18] MEDS: levETIRAcetam 250 MG TAB PO SCH ×2 (10:31→20:56)
[2016-09-18] MEDS: DIVALPROEX SODIUM E.R. 250 MG TAB PO SCH ×2 (10:31→20:56)
[2016-09-18] MEDS: LORazepam 2 MG/ML VIAL IV PUSH PRN (10:52)
[2016-09-18] MEDS ORDERED: POTASSIUM CHLORIDE 20 MEQ CONTROLLED RELEASE TAB PO ONE ×3 (18:30→21:00)
[2016-09-19] VITALS (10 sets, daily range): BP systolic 118–143; BP diastolic 73–81; PULSE 89–118; RESP 16–18; TEMP 97.5–100.5; O2SAT 91–99
[2016-09-19] MEDS: RESP: ALBUTEROL 2.5 MG/IPRATROPIUM 0.5 MG NEB (SCH) NEB ×7 (02:53→23:45)
[2016-09-19] MEDS: ACETAMINOPHEN/HYDROcodone 325 MG/10 MG TAB PO PRN ×3 (03:25→21:02)
[2016-09-19 05:32] LABS: AUTOMATED NEUTROPHIL # 6.1 TH/MM3 (1.8-7.7); BASOPHIL % 0.4 % (0.0-2.0); EOSINOPHIL # 0.1 TH/MM3 (0-0.4); EOSINOPHIL % 0.8 % (0.0-4.0); HEMATOCRIT 33.7 % (35.0-46.0); HEMO FLAGS DIFF FINAL; LYMPHOCYTE # 1.6 TH/MM3 (1.0-4.8); MEAN CORPUSCULAR HEMOGLOBIN 30.4 PG (27.0-34.0); MEAN CORPUSCULAR HGB CONC 32.3 % (32.0-36.0); MONO % 16.8 % (0.0-8.0); PLATELET COUNT 203 TH/MM3 (150-450); RED BLOOD COUNT 3.58 MIL/MM3 (4.00-5.30); RED CELL DISTRIBUTION WIDTH 13.8 % (11.6-17.2); WHITE BLOOD COUNT 9.3 TH/MM3 (4.0-11.0)
[2016-09-19 05:55] LABS: BICARBONATE 24.9 MEQ/L (21.0-32.0); MAGNESIUM 1.9 MG/DL (1.5-2.5); POTASSIUM 4.3 MEQ/L (3.5-5.1)
[2016-09-19] MEDS: INSULIN NovoLIN REGULAR SUPPLEMENTAL SCALE SQ SCH ×4 (06:22→21:12)
--- NOTE | 2016-09-19 08:49 | PD.ORT.PN ---
Subjective Subjective Remarks She continues to have moderate right leg cramping and spasms. No interval changes since last night. Eager to find out about surgery tomorrow. No new nausea, abd pain, CP or SOB. Objective Vitals Vital Signs Date Time Temp Pulse Resp B/P Pulse Ox O2 Delivery O2 Flow Rate FiO2 09/19/16 04:00 98.8 97 18 140/81 99 09/19/16 00:00 97.5 106 16 142/74 94 09/18/16 20:00 97.6 106 18 140/81 97 09/18/16 20:00 110 09/18/16 16:00 98.4 106 17 121/70 98 09/18/16 12:07 98.4 97 17 137/76 99 I/O 09/18/16 09/18/16 09/18/16 09/19/16 09/19/16 09/19/16 07:00 15:00 23:00 07:00 15:00 23:00 Intake Total 240 ml 720 ml 240 ml 120 ml Balance 240 ml 720 ml 240 ml 120 ml Intake Oral 240 ml 720 ml 240 ml 120 ml IV Total 0 ml # Voids 1 3 1 2 # Bowel Movements 0 1 0 0 Result Diagram: 09/19/16 0508 09/19/16 0508 Objective Remarks Laying in bed Anxious VSS RLE Dressings / ExFix in place, pin sites clean/dressed, swelling ankle foot +wiggles toes, sensation intact but somewhat diminished, +nvi Assessment & Plan Assessment and Plan 1) right Tibial Plateau fx s/p exfix - POD 3 -NWB RLE. - Continue to elevate, Ice -pin care BID -npo after MN tuesday, poss ORIF tuesday -Patient appears to have been placed on Xarelto 10mg by medical staff. Her last dose was yesterday. We will have it held again today anticipating surgery for tomorrow. Azeb Cai Sep 19, 2016 08:49
[2016-09-19] MEDS: SODIUM CHLORIDE 0.9% FLUSH 5 ML FLUSH IVF SCH ×2 (09:00→21:03)
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
[2016-09-19] MEDS: DOCUSATE SODIUM 50 MG/SENNA 8.6 MG TAB PO SCH ×2 (10:32→21:02)
[2016-09-19] MEDS: DIVALPROEX SODIUM E.R. 250 MG TAB PO SCH ×2 (10:32→21:02)
[2016-09-19] MEDS: SERTRALINE HCL 50 MG TAB PO SCH (10:32)
[2016-09-19] MEDS: GABAPENTIN 400 MG CAP PO SCH ×2 (10:32→21:02)
[2016-09-19] MEDS: guaiFENesin E.R. 600 MG TAB PO SCH ×2 (10:33→21:02)
[2016-09-19] MEDS: FOLIC ACID 1 MG TAB PO SCH (10:33)
[2016-09-19] MEDS: levETIRAcetam 250 MG TAB PO SCH ×2 (10:33→21:02)
[2016-09-19] MEDS: TOLTERODINE TARTRATE 2 MG CAP LA PO SCH (10:33)
[2016-09-19] MEDS: LORazepam 2 MG/ML VIAL IV PUSH PRN (21:17)
[2016-09-20] VITALS (9 sets, daily range): BP systolic 114–155; BP diastolic 67–83; PULSE 98–115; RESP 16–18; TEMP 97.8–99.4; O2SAT 91–98
[2016-09-20] MEDS ORDERED: SODIUM CHLORID 0.9% 500 ML IV PRN (02:45)
[2016-09-20] MEDS ORDERED: CHLORHEXIDINE GLUCONATE 2 % 1 PACK (2 CLOTHS) TOPICAL PRN (02:45)
[2016-09-20] MEDS ORDERED: LACTATED RINGER'S 1000 ML IV PRN (02:45)
[2016-09-20] MEDS: ACETAMINOPHEN/HYDROcodone 325 MG/10 MG TAB PO PRN ×4 (03:53→22:29)
[2016-09-20] MEDS: RESP: ALBUTEROL 2.5 MG/IPRATROPIUM 0.5 MG NEB (SCH) NEB ×4 (04:31→16:21)
[2016-09-20] MEDS: INSULIN NovoLIN REGULAR SUPPLEMENTAL SCALE SQ SCH ×4 (05:56→21:00)
--- NOTE | 2016-09-20 06:55 | PD.ORT.PN ---
Subjective Subjective Remarks POd 4 s/p exfix right tibial plateau fx -doing well. pain controlled. no complaints. Objective Vitals Vital Signs Date Time Temp Pulse Resp B/P Pulse Ox O2 Delivery O2 Flow Rate FiO2 09/20/16 04:35 99.4 104 18 155/83 98 09/20/16 04:33 91 21 09/20/16 00:17 99.2 104 18 145/81 94 09/19/16 23:47 94 21 09/19/16 22:42 117 09/19/16 20:30 100.5 118 18 143/73 95 09/19/16 16:00 98.5 106 17 127/78 94 09/19/16 15:48 95 21 09/19/16 12:00 99.3 111 18 132/78 91 09/19/16 08:12 89 09/19/16 08:00 98.8 96 17 118/74 91 I/O 09/19/16 09/19/16 09/19/16 09/20/16 09/20/16 09/20/16 07:00 15:00 23:00 07:00 15:00 23:00 Intake Total 120 ml 480 ml 240 ml Output Total 120 ml Balance 120 ml 480 ml 120 ml Intake Oral 120 ml 480 ml 240 ml IV Total 0 ml Output Urine Total 120 ml # Voids 2 5 1 2 # Bowel Movements 0 0 0 # Sanitary Pads 1 Pads Result Diagram: 09/19/16 0508 09/19/16 0508 Objective Remarks Laying in bed Anxious VSS RLE Dressings / ExFix in place, pin sites clean/dressed, swelling ankle foot +wiggles toes, sensation intact but somewhat diminished, +nvi Assessment & Plan Assessment and Plan 1) right Tibial Plateau fx s/p exfix - POD 4 -NWB RLE. - Continue to elevate, Ice -pin care BID -resume diet today -npo after MN -plan for potential surgery tomorrow -hold xarelto -toradol 30mg IV Q6H x 3 doses Chucho Rees Sep 20, 2016 06:55
[2016-09-20] MEDS: THIAMINE HCL 100 MG TAB PO SCH (08:30)
[2016-09-20] MEDS: DIVALPROEX SODIUM E.R. 250 MG TAB PO SCH ×2 (08:31→23:28)
[2016-09-20] MEDS: DOCUSATE SODIUM 50 MG/SENNA 8.6 MG TAB PO SCH ×2 (08:31→22:30)
[2016-09-20] MEDS: GABAPENTIN 400 MG CAP PO SCH ×2 (08:31→22:30)
[2016-09-20] MEDS: guaiFENesin E.R. 600 MG TAB PO SCH ×2 (08:32→22:30)
[2016-09-20] MEDS: levETIRAcetam 250 MG TAB PO SCH ×2 (08:32→23:28)
[2016-09-20] MEDS: SODIUM CHLORIDE 0.9% FLUSH 5 ML FLUSH IVF SCH ×2 (08:32→21:00)
[2016-09-20] MEDS: SERTRALINE HCL 50 MG TAB PO SCH (08:32)
[2016-09-20] MEDS: FOLIC ACID 1 MG TAB PO SCH (08:32)
[2016-09-20] MEDS: KETOROLAC TROMETHAMINE 30 MG/ML (IVP) VIAL IV PUSH SCH ×3 (08:33→18:26)
[2016-09-20] MEDS: TOLTERODINE TARTRATE 2 MG CAP LA PO SCH (09:00)
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
[2016-09-20 13:53] LABS: HEPARIN INDUCED PLATELET AB NEGATIVE (NEGATIVE)
[2016-09-21] VITALS (7 sets, daily range): BP systolic 117–146; BP diastolic 69–84; PULSE 96–122; RESP 16–22; TEMP 97.4–100.4; O2SAT 93–100
[2016-09-21] MEDS ORDERED: CHLORHEXIDINE GLUCONATE 2 % 1 PACK (2 CLOTHS) TOPICAL PRN (06:00)
[2016-09-21] MEDS: INSULIN NovoLIN REGULAR SUPPLEMENTAL SCALE SQ SCH ×4 (06:35→21:00)
--- NOTE | 2016-09-21 07:03 | PD.ORT.PN ---
Subjective Subjective Remarks Resting comfortably with no new complaints Objective Vitals Vital Signs Date Time Temp Pulse Resp B/P Pulse Ox O2 Delivery O2 Flow Rate FiO2 09/21/16 04:15 99.5 122 17 117/75 94 09/21/16 03:45 Room Air 09/21/16 00:15 98.8 108 16 118/73 93 09/20/16 23:31 18 09/20/16 20:45 98 09/20/16 20:00 97.8 105 16 135/69 94 09/20/16 16:00 98.9 115 18 114/67 93 09/20/16 13:52 98.1 108 18 133/75 92 09/20/16 11:26 112 09/20/16 08:00 99.0 102 18 142/78 96 I/O 09/20/16 09/20/16 09/20/16 09/21/16 09/21/16 09/21/16 07:00 15:00 23:00 07:00 15:00 23:00 Intake Total 540 ml 0 ml Balance 540 ml 0 ml Intake Oral 540 ml 0 ml # Voids 2 7 3 # Bowel Movements 0 0 Result Diagram: 09/19/16 0508 09/19/16 0508 Objective Remarks Laying in bed Anxious VSS RLE Dressings / ExFix in place, pin sites clean/dressed, swelling improved +wiggles toes, sensation intact but somewhat diminished, +nvi Assessment & Plan Assessment and Plan 1) right Tibial Plateau fx s/p exfix - POD 5 -NWB RLE. - Continue to elevate, Ice -pin care BID -npo -plan for surgery today -hold Louis Castrejon Jr. Sep 21, 2016 07:03
[2016-09-21] MEDS ORDERED: SODIUM CHLOR 0.9% 250 ML INJ 250 ML ONE (07:59)
[2016-09-21] MEDS ORDERED: GENTAMICIN SULFATE 80 MG/2 ML VIAL ONE (07:59)
[2016-09-21] MEDS ORDERED: VANCOMYCIN HCL 1000 MG VIAL ONE (07:59)
[2016-09-21] MEDS: DOCUSATE SODIUM 50 MG/SENNA 8.6 MG TAB PO SCH ×2 (09:00→21:11)
[2016-09-21] MEDS ORDERED: ceFAZolin INJ 1,000 MG VIAL IV ONE (09:08)
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
[2016-09-21] MEDS ORDERED: Post-op Orders (for Pharmacy) MISC XX ONE (10:30)
[2016-09-21] MEDS ORDERED: SODIUM CHLORIDE 0.9% FLUSH 5 ML FLUSH IVF PRN (10:30)
[2016-09-21] MEDS ORDERED: MISCELLANEOUS NURSING INFORMATION XX PRN (10:30)
--- NOTE | 2016-09-21 10:34 | PD.OP ---
cc: James Cleaning MD Operative Report Date of Surgery: Sep 21, 2016 Preoperative Diagnosis: Right tibia bicondylar plateau fracture Postoperative Diagnosis: Procedure: Open reduction internal fixation bicondylar right tibial plateau fracture, removal of external fixation Anesthesia: Gen. Surgeon: James Cleaning Joint Sealer(s): SEBASTIEN Kim PA-C The surgical procedure was assisted by my physician recycling assistant. My P.A. presence was necessary throughout this case for the manipulation and positioning of the surgical extremity. My P.A. was assisting me throughout the duration of this procedure. The skill set of a physician recycling assistant was medically necessary to complete this procedure. During the surgical case the surgical coder was working at the back table and the physician recycling assistant was directly assisting me. Operation and Findings: This patient was seen and evaluated preoperatively. Patient sustained an injury resulting a bicondylar right tibial plateau fracture. Initially she had too much swelling for definitive fixation and underwent external fixation. Informed consent was obtained preoperatively after detailed discussion of the risks and benefits of surgery. Risk of surgery including bleeding, infection, nonunion, painful hardware, stiffness, loss of motion, arthritis, need for knee replacement, as well as medical complications including blood clots, stroke, heart attack, and were discussed. I also discussed the possibility of using allograft bone graft . Preoperatively the operative site was marked. Patient was brought to the operating room and placed on the operating room table. Intravenous sedation and general endotracheal anesthesia were administered. IV antibiotics were given and a time out procedure was preformed. Procedure began with removal of the external fixator. Clamps were loosened. Bars and clamps were now removed. The pins were left in place. Next,the operative leg was prepped with alcohol followed by Hibiclens and draped in the usual sterile fashion. Next a 4-inch curvilinear incision over the anterolateral knee. Subcutaneous tissue was treated with Bovie. Iliotibial band was split in line with fibers. A sub-meniscal arthrotomy was created and the lateral articular surface was visualized. There was significant comminution and depression of the articular surface. A window was made in the metaphyseal region and bone tamps used to elevate the articular surface. Articular surface reduced into excellent alignment. K-wires were used for provisional fixation. At this point cancellous bone graft was packed under the articular surface using a bone tamp. The cortical fragments were now reduced. Fluoroscopy revealed excellent alignment of fracture. Next the tibial shaft was reduced up to the medial condyle of the tibial plateau. Percutaneous incisions were made. A fracture tenaculum was used to aid in reduction of fracture. Multiplanar fluoroscopy confirmed excellent alignment of fractures. A Synthes proximal tibial plate was selected. The plate was provisionally held with K-wires. 3.5 cortical screws were used compress plate to bone distally, and a periarticular clamp was used to compress the medial and lateral tibial plateau fracture fragments together. Multiple locking screws were now placed proximally. Additional screws were placed in the shaft. K-wires were removed. Final fluoroscopy showed excellent alignment of fracture with well-placed hardware. The incision was thoroughly irrigated. Incisions were thoroughly irrigated. Attention was now turned to closure. Fascia and iliotibial band were closed with #1 Vicryl,. Subcutaneous tissues closed with 3-0 Vicryl and skin was closed with arnaud. Sterile dressings were applied. The patient was transferred to recovery in stable condition. James Cleaning MD Sep 21, 2016 10:34
[2016-09-21] MEDS ORDERED: DO NOT ADM ANY ANTICOAGULANT DRUGS PRN (10:48)
[2016-09-21] MEDS: LACTATED RINGER'S 1000 ML INJ 1,000 ML IV SCH ×2 (10:55→22:57)
[2016-09-21] MEDS ORDERED: *MEPERIDINE 25 MG INJ VIAL PERIprocedural Use ONLY ONE (11:08)
[2016-09-21] MEDS ORDERED: CALCTAB19 PO (11:30)
[2016-09-21] MEDS ORDERED: ERGO1CAP30 PO (11:30)
[2016-09-21] MEDS ORDERED: VITA2000 PO (11:30)
[2016-09-21] MEDS ORDERED: WHEEMIS3 (11:30)
[2016-09-21] MEDS ORDERED: XARE10TA PO (11:30)
[2016-09-21] MEDS ORDERED: HYDR-3580 PO (11:30)
[2016-09-21] MEDS ORDERED: ERGOCALCIFEROL (VIT D2) 50,000 UNIT CAP PO SCH (12:00)
[2016-09-21] MEDS: ACETAMINOPHEN/HYDROcodone 325 MG/7.5 MG TAB PO PRN ×3 (13:01→21:09)
[2016-09-21] MEDS: FOLIC ACID 1 MG TAB PO SCH (13:01)
[2016-09-21] MEDS: THIAMINE HCL 100 MG TAB PO SCH (13:02)
[2016-09-21] MEDS: CALCIUM/VITAMIN D 250 MG/125 U TAB PO SCH ×2 (13:02→17:33)
[2016-09-21] MEDS: guaiFENesin E.R. 600 MG TAB PO SCH ×2 (13:02→21:10)
[2016-09-21] MEDS: GABAPENTIN 400 MG CAP PO SCH ×2 (13:02→21:11)
[2016-09-21] MEDS: SERTRALINE HCL 50 MG TAB PO SCH (13:02)
[2016-09-21] MEDS: DIVALPROEX SODIUM E.R. 250 MG TAB PO SCH ×2 (13:18→21:34)
[2016-09-21] MEDS: TOLTERODINE TARTRATE 2 MG CAP LA PO SCH (13:18)
[2016-09-21] MEDS: levETIRAcetam 250 MG TAB PO SCH ×2 (13:18→21:34)
[2016-09-21] MEDS ORDERED: PROPOFOL 200 MG/20 ML AMP IV ONE (13:19)
[2016-09-21] MEDS ORDERED: ePHEDrine/NS 25 MG/5 ML SYR IV ONE (13:19)
[2016-09-21] MEDS ORDERED: NEOSTIGMINE 3 MG/3 ML SYR IV ONE (13:20)
[2016-09-21] MEDS ORDERED: ONDANSETRON HCL 4 MG/2 ML VIAL IV PUSH ONE (13:20)
[2016-09-21] MEDS ORDERED: PHENYLEPH/NS 1000 MCG/10 ML SYR IV ONE (13:20)
[2016-09-21 13:57] LABS: BICARBONATE 24.7 MEQ/L (21.0-32.0); POTASSIUM 3.9 MEQ/L (3.5-5.1)
--- NOTE | 2016-09-21 15:33 | RADRPT ---
EXAM DATE/TIME: 09/21/2016 10:15 [place] COMPARISON: TIBIA/FIBULA RIGHT (AP/LAT), September 16, 2016, 18:24. INDICATIONS : ORIF right tibial plateau. MEDICAL HISTORY : None. SURGICAL HISTORY : None. ENCOUNTER: Subsequent ACUITY: 4 - 6 days PAIN SCORE: Non-responsive. LOCATION: Right proximal tibia. FINDINGS: Side plate and multiple screws traverse the tibia with excellent anatomical alignment of the fracture fragments. CONCLUSION: Intact postsurgical changes for technique. Song Barnard MD on September 21, 2016 at 15:31 Board Certified Radiologist. This report was verified electronically.
[2016-09-21] MEDS: ceFAZolin 2 GM PREMIX 50 ML IV SCH (17:34)
[2016-09-21] MEDS: SODIUM CHLORIDE 0.9% FLUSH 5 ML FLUSH IVF SCH (21:00)
[2016-09-21] MEDS: VANCOMYCIN INJ 1,000 MG in SODIUM CHLOR 0.9% 250 ML INJ 250 ML IV SCH (21:10)
[2016-09-22] VITALS (10 sets, daily range): BP systolic 118–157; BP diastolic 61–86; PULSE 82–115; RESP 17–22; TEMP 96.3–99.9; O2SAT 92–98
[2016-09-22] MEDS: ceFAZolin 2 GM PREMIX 50 ML IV SCH ×3 (03:20→17:06)
[2016-09-22] MEDS: ACETAMINOPHEN/HYDROcodone 325 MG/7.5 MG TAB PO PRN ×4 (03:23→20:24)
[2016-09-22] MEDS: INSULIN NovoLIN REGULAR SUPPLEMENTAL SCALE SQ SCH ×4 (06:33→20:29)
--- NOTE | 2016-09-22 06:45 | PD.ORT.PN ---
Subjective Subjective Remarks POD 1 s/p ORIF right tibial plateau -doing well. reports pain in leg. patient has been lethargic all night. Objective Vitals Vital Signs Date Time Temp Pulse Resp B/P Pulse Ox O2 Delivery O2 Flow Rate FiO2 09/22/16 04:44 Nasal Cannula 2.00 09/22/16 04:23 18 09/22/16 00:15 108 09/21/16 22:30 114 09/21/16 20:00 99.1 108 21 143/84 96 09/21/16 16:00 99.0 114 18 142/74 100 09/21/16 12:40 97.4 96 21 146/81 94 09/21/16 11:45 98.6 105 14 156/74 98 Nasal Cannula 2 09/21/16 11:30 105 13 144/74 96 Nasal Cannula 2 09/21/16 11:15 107 14 166/85 97 Nasal Cannula 2 09/21/16 11:00 110 15 167/92 96 Nasal Cannula 2 09/21/16 10:49 98.7 105 14 164/85 100 Nasal Cannula 4 09/21/16 08:00 100.4 109 22 122/69 95 I/O 09/21/16 09/21/16 09/21/16 09/22/16 09/22/16 09/22/16 07:00 15:00 23:00 07:00 15:00 23:00 Intake Total 0 ml 1000 ml 83 ml Output Total 75 ml Balance 0 ml 925 ml 83 ml Intake Oral 0 ml IV Total 100 ml 83 ml Other 900 ml Estimated Blood Loss 75 ml # Voids 3 3 # Bowel Movements 0 Result Diagram: 09/19/16 0508 09/21/16 1320 Objective Remarks patient lethargic and slurring words RLE dressings clean and dry. +CKS. full sensation distally. stiffness to dorsiflexion. neg ne. compartments soft. Assessment & Plan Assessment and Plan 1) right Tibial Plateau fx s/p ORIF - POD 1 -NWB RLE. - Continue to elevate, Ice -CKS at all times -no quad sets or leg lifts -daily dressing changes to begin POD 2 -DVT prophylaxis with lovenox. will transition to xarelton on discharge -work with PT on walker training -plan for DC to SNF when arrangements made -f/u with Of[facility] or [facility] in 2 weeks Chucho Rees Sep 22, 2016 06:45
[2016-09-22 08:55] LABS: AUTOMATED NEUTROPHIL # 6.7 TH/MM3 (1.8-7.7); BASOPHIL # 0.1 TH/MM3 (0-0.2); BASOPHIL % 0.6 % (0.0-2.0); EOSINOPHIL # 0.1 TH/MM3 (0-0.4); EOSINOPHIL % 0.7 % (0.0-4.0); HEMATOCRIT 30.1 % (35.0-46.0); HEMO FLAGS DIFF FINAL; LYMPH % 7.9 % (9.0-44.0); LYMPHOCYTE # 0.7 TH/MM3 (1.0-4.8); MEAN CELL VOLUME 93.4 FL (80.0-100.0); MEAN CORPUSCULAR HGB CONC 33.2 % (32.0-36.0); MONO % 16.9 % (0.0-8.0); NEUT % 73.9 % (16.0-70.0); PLATELET COUNT 273 TH/MM3 (150-450); RED BLOOD COUNT 3.23 MIL/MM3 (4.00-5.30); RED CELL DISTRIBUTION WIDTH 13.8 % (11.6-17.2)
[2016-09-22] MEDS: SODIUM CHLORIDE 0.9% FLUSH 5 ML FLUSH IVF SCH ×2 (09:00→20:19)
[2016-09-22 09:01] LABS: BICARBONATE 27.2 MEQ/L (21.0-32.0); POTASSIUM 3.9 MEQ/L (3.5-5.1)
[2016-09-22] MEDS: DIVALPROEX SODIUM E.R. 250 MG TAB PO SCH ×2 (09:48→20:24)
[2016-09-22] MEDS: guaiFENesin E.R. 600 MG TAB PO SCH ×2 (09:48→20:17)
[2016-09-22] MEDS: CHOLECALCIFEROL (VIT D3) 1000 UNIT TAB PO SCH (09:48)
[2016-09-22] MEDS: GABAPENTIN 400 MG CAP PO SCH ×2 (09:48→20:17)
[2016-09-22] MEDS: FOLIC ACID 1 MG TAB PO SCH (09:48)
[2016-09-22] MEDS: DOCUSATE SODIUM 50 MG/SENNA 8.6 MG TAB PO SCH ×2 (09:48→20:17)
[2016-09-22] MEDS: TOLTERODINE TARTRATE 2 MG CAP LA PO SCH (09:48)
[2016-09-22] MEDS: levETIRAcetam 250 MG TAB PO SCH ×2 (09:49→20:24)
[2016-09-22] MEDS: CALCIUM/VITAMIN D 250 MG/125 U TAB PO SCH ×3 (09:49→17:05)
[2016-09-22] MEDS: SERTRALINE HCL 50 MG TAB PO SCH (09:49)
[2016-09-22] MEDS: THIAMINE HCL 100 MG TAB PO SCH (09:49)
[2016-09-22] MEDS: VANCOMYCIN INJ 1,000 MG in SODIUM CHLOR 0.9% 250 ML INJ 250 ML IV SCH ×2 (09:59→20:18)
[2016-09-22] MEDS: INSULIN HUMAN REGULAR 1,000 UNITS/10 ML VIAL SQ PRN ×3 (12:42→18:10)
[2016-09-22] MEDS: LACTATED RINGER'S 1000 ML INJ 1,000 ML IV SCH ×2 (12:47→23:37)
--- NOTE | 2016-09-22 20:02 | HHI.PR ---
Subjective Remarks Doing well post op. Complaints are mild dizziness and lethargy, both likely related to narcotics. Pain controlled. No nausea. Objective Vital Signs Date Time Temp Pulse Resp B/P Pulse Ox O2 Delivery O2 Flow Rate FiO2 09/22/16 15:50 96.7 115 19 152/86 96 09/22/16 12:00 96.5 106 19 132/70 92 09/22/16 10:07 94 21 09/22/16 08:00 92 Room Air 09/22/16 08:00 92 Room Air 09/22/16 08:00 109 09/22/16 07:48 96.3 109 17 121/68 92 09/22/16 04:44 Nasal Cannula 2.00 09/22/16 04:23 18 09/22/16 04:00 98.8 109 21 118/61 98 09/22/16 00:15 108 09/22/16 00:00 99.9 101 20 145/71 95 09/21/16 22:30 114 09/21/16 20:00 99.1 108 21 143/84 96 I/O 09/21/16 09/21/16 09/21/16 09/22/16 09/22/16 09/22/16 07:00 15:00 23:00 07:00 15:00 23:00 Intake Total 0 ml 1000 ml 863 ml 879 ml 430 ml Output Total 75 ml Balance 0 ml 925 ml 863 ml 879 ml 430 ml Intake Oral 0 ml 780 ml 480 ml 300 ml IV Total 100 ml 83 ml 399 ml 130 ml Other 900 ml Estimated Blood Loss 75 ml # Voids 3 3 2 2 5 # Bowel Movements 0 0 0 0 Result Diagram: 09/22/16 0808 09/22/16 0808 Procedures With Diagnosis of Right Tibia Bicondylar Plateau fracture, status post Closed reduction right tibial plateau fracture, external fixation right lower extremity by Doctor James Cleaning 09/16/16 Objective Remarks GENERAL: NAD, A&Ox3 SKIN: Warm and dry. HEAD: Normocephalic. EYES: No scleral icterus. No injection or drainage. NECK: Supple, trachea midline. No JVD or lymphadenopathy. CARDIOVASCULAR: Regular rate and rhythm without murmurs, gallops, or rubs. RESPIRATORY: Breath sounds equal bilaterally. No accessory muscle use. GASTROINTESTINAL: Abdomen soft, non-tender, nondistended. MUSCULOSKELETAL: No cyanosis, or edema. Right leg bandaged. BACK: Nontender without obvious deformity. No CVA tenderness. A/P Problem List: (1) Right tibial fracture ICD Code: S82.201A Assessment and Plan Assessment and Plan 50 year old female, status post repair of a right Tibia Plateau fracture Right Tibia Plateau Fracture (repaired) PRN pain treatments PT Follow pain levels Ortho following Asthma No exacerbation Bronchodilators IS Mucolytics General Anxiety Disorder Depression No change to baseline treatment DM2 ISS Diabetic Diet Follow blood sugars HTN Follow BP Continue baseline treatments ETOH Abuse ETOH Dependency Follow for withdraw CIWA protocall DVT Prophylaxis Xarelto Problem Qualifiers (1) Right tibial fracture: Qualified Code: S82.224A - Closed nondisplaced transverse fracture of shaft of right tibia, initial encounter Pb Bingham MD Sep 22, 2016 20:02
[2016-09-23] VITALS: BP 122/80; PULSE 96; RESP 22; TEMP 97.1; O2SAT 95
[2016-09-23] MEDS: ACETAMINOPHEN/HYDROcodone 325 MG/7.5 MG TAB PO PRN ×4 (01:52→11:40)
[2016-09-23] MEDS: ceFAZolin 2 GM PREMIX 50 ML IV SCH ×2 (01:52→08:22)
[2016-09-23 04:18] VITALS: BP 145/80; PULSE 92; RESP 17; TEMP 98.8; O2SAT 94
[2016-09-23] MEDS: INSULIN NovoLIN REGULAR SUPPLEMENTAL SCALE SQ SCH ×2 (05:48→11:00)
--- NOTE | 2016-09-23 06:35 | PD.ORT.PN ---
Subjective Subjective Remarks POD 2 s/p ORIF right tibial plateau -doing well. reports pain in leg. Objective Vitals Vital Signs Date Time Temp Pulse Resp B/P Pulse Ox O2 Delivery O2 Flow Rate FiO2 09/23/16 04:18 98.8 92 17 145/80 94 09/22/16 21:00 82 09/22/16 20:00 97.1 96 22 157/71 95 09/22/16 15:50 96.7 115 19 152/86 96 09/22/16 12:00 96.5 106 19 132/70 92 09/22/16 10:07 94 21 09/22/16 08:00 92 Room Air 09/22/16 08:00 92 Room Air 09/22/16 08:00 109 09/22/16 07:48 96.3 109 17 121/68 92 I/O 09/22/16 09/22/16 09/22/16 09/23/16 09/23/16 09/23/16 07:00 15:00 23:00 07:00 15:00 23:00 Intake Total 879 ml 430 ml 780 ml Output Total 375 ml Balance 879 ml 430 ml 780 ml -375 ml Intake Oral 480 ml 300 ml 780 ml IV Total 399 ml 130 ml Output Urine Total 375 ml # Voids 2 5 4 # Bowel Movements 0 0 0 Result Diagram: 09/22/16 0808 09/22/16 0808 Objective Remarks RLE dressings clean and dry. +CKS. full sensation distally. stiffness to dorsiflexion. pain with dorsiflexion. compartments soft. Assessment & Plan Assessment and Plan 1) right Tibial Plateau fx s/p ORIF - POD 2 -NWB RLE. - Continue to elevate, Ice -CKS at all times -no quad sets or leg lifts -daily dressing changes to begin POD 2 -DVT prophylaxis with lovenox. will transition to xarelton on discharge -work with PT on walker training -plan for DC to SNF when arrangements made -f/u with Ofelia or [facility] in 2 weeks -will order ultrasound to rule out DVT today as precaution Chucho Rees Sep 23, 2016 06:35
[2016-09-23 07:36] VITALS: BP 131/70; PULSE 86; RESP 19; TEMP 98.2; O2SAT 91
[2016-09-23] MEDS: guaiFENesin E.R. 600 MG TAB PO SCH (08:22)
[2016-09-23] MEDS: DIVALPROEX SODIUM E.R. 250 MG TAB PO SCH (08:22)
[2016-09-23] MEDS: FOLIC ACID 1 MG TAB PO SCH (08:22)
[2016-09-23] MEDS: levETIRAcetam 250 MG TAB PO SCH (08:23)
[2016-09-23] MEDS: CALCIUM/VITAMIN D 250 MG/125 U TAB PO SCH (08:23)
[2016-09-23] MEDS: DOCUSATE SODIUM 50 MG/SENNA 8.6 MG TAB PO SCH (08:23)
[2016-09-23] MEDS: THIAMINE HCL 100 MG TAB PO SCH (08:23)
[2016-09-23] MEDS: GABAPENTIN 400 MG CAP PO SCH (08:23)
[2016-09-23] MEDS: SERTRALINE HCL 50 MG TAB PO SCH (08:23)
[2016-09-23] MEDS: CHOLECALCIFEROL (VIT D3) 1000 UNIT TAB PO SCH (08:23)
[2016-09-23] MEDS: TOLTERODINE TARTRATE 2 MG CAP LA PO SCH (08:23)
--- NOTE | 2016-09-23 10:37 | RADRPT ---
EXAM DATE/TIME: 09/23/2016 07:54 [facility] COMPARISON: US ABDOMEN - COMPLETE, May 12, 2014, 15:06. INDICATIONS : Pain right leg. MEDICAL HISTORY : Hypertension. Diabetes. Asthma. Tachycardia. Bipolar disorder. SURGICAL HISTORY : Tonsillectomy. Extraction of all teeth with mandible shaving. Craniotomy. ENCOUNTER: Initial ACUITY: 1 week PAIN SCORE: 9/10 LOCATION: Right leg. TECHNIQUE: Venous ultrasound of the leg was performed from the inguinal ligament to the proximal calf. Real-khloe e, color Doppler and spectral tracing, compression and augmentation techniques were used. FINDINGS: There is normal compressibility of the deep venous system from the inguinal region to the proximal ca lf. No echogenic clot is seen in the lumen of the common femoral, femoral, popliteal, and posterior tibial veins. There is a normal response of the venous system to proximal and distal augmentation an d respiration. CONCLUSION: 1. No DVT identified. Pb Em MD on September 23, 2016 at 10:32 Board Certified Radiologist. This report was verified electronically.
[2016-09-23 11:43] VITALS: BP 133/77; PULSE 96; RESP 19; TEMP 98.4; O2SAT 96
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
== END 2016-09-23 12:34 | DRG 493 ==
LOC: NEPD 08:51 → NEDA 13:40 → N06B 20:40
PROVIDERS: ADMIT Hospitalist; ATTEND Hospitalist
PROC: 0QSG35Z Reposition Right Tibia with External Fixation Device, Percutaneous Approach (ICD-10-PCS; principal; 2016-09-16 17:50)
PROC: 0QSG04Z Reposition Right Tibia with Internal Fixation Device, Open Approach (ICD-10-PCS; 2016-09-21)
PROC: 0QPGX5Z Removal of External Fixation Device from Right Tibia, External Approach (ICD-10-PCS; 2016-09-21)
DX: S82.144A Nondisplaced bicondylar fracture of right tibia, initial encounter for closed fracture (principal); F10.231 Alcohol dependence with withdrawal delirium; S09.90XA Unspecified injury of head, initial encounter; D75.82 Heparin induced thrombocytopenia (HIT); E11.65 Type 2 diabetes mellitus with hyperglycemia; Z79.4 Long term (current) use of insulin; V03.10XA Pedestrian on foot injured in collision with car, pick-up truck or van in traffic accident, initial encounter; W22.09XA Striking against other stationary object, initial encounter; Y93.89 Activity, other specified; Y92.410 Unspecified street and highway as the place of occurrence of the external cause; E87.6 Hypokalemia; I10 Essential (primary) hypertension; J45.909 Unspecified asthma, uncomplicated; F32.9 Major depressive disorder, single episode, unspecified; F41.9 Anxiety disorder, unspecified; H91.92 Unspecified hearing loss, left ear; K21.9 Gastro-esophageal reflux disease without esophagitis; Z91.041 Radiographic dye allergy status; Z86.011 Personal history of benign neoplasm of the brain
CPT/HCPCS: 70450; 71010; 72125; 72170; 73590; 73700; 74176; 76000; 80048; 80061; 80164; 82652; 82948; 83036; 83735; 84100; 84443; 85014; 85018; 85025; 86022; 93005; 93971; 94640; 94664; 96374; 96375; 96376; C1713; J0690; J1170; J1580; J1815; J1885; J2060; J2175; J2250; J2370; J2405; J2710; J3010; J3370; J3411; J7030; J7040; J7050; J7120; L1830

== ENCOUNTER 2016-10-21 08:17 | Inpatient (IN) | payer OTHER ==
[~2016-10-21] VITALS: Ht 160 cm; Wt 62.0 kg
[~2016-10-21 08:17] MED LIST changes: +CALCTAB19 PO; +GLIP5 PO; -LANTINJ SQ; +METF500 PO; +OXYC1TAB36 PO; +POTA20TA5 PO; +TEMA7.5C9 PO; -TYLE325T PO; +VITA2000 PO; +WHEEMIS3; +XARE10TA PO
[2016-10-21 08:21] VITALS: BP 110/58; PULSE 93; RESP 25; TEMP 99.4
[2016-10-21 08:58] LABS: AUTOMATED NEUTROPHIL # 6.7 TH/MM3 (1.8-7.7); BASOPHIL % 0.1 % (0.0-2.0); EOSINOPHIL % 0.5 % (0.0-4.0); HEMATOCRIT 32.5 % (35.0-46.0); HEMO FLAGS DIFF FINAL; LYMPH % 7.7 % (9.0-44.0); LYMPHOCYTE # 0.7 TH/MM3 (1.0-4.8); MEAN CELL VOLUME 91.8 FL (80.0-100.0); MEAN CORPUSCULAR HEMOGLOBIN 29.3 PG (27.0-34.0); MEAN CORPUSCULAR HGB CONC 31.9 % (32.0-36.0); MONO % 12.5 % (0.0-8.0); NEUT % 79.2 % (16.0-70.0); PLATELET COUNT 198 TH/MM3 (150-450); RED BLOOD COUNT 3.53 MIL/MM3 (4.00-5.30); RED CELL DISTRIBUTION WIDTH 14.6 % (11.6-17.2); WHITE BLOOD COUNT 8.4 TH/MM3 (4.0-11.0)
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
--- NOTE | 2016-10-21 09:07 | RADRPT ---
EXAM DATE/TIME: 10/21/2016 08:56 [facility] COMPARISON: CT BRAIN W/O CONTRAST, September 16, 2016, 11:10. INDICATIONS : Altered mental status. RADIATION DOSE: 27.56 CTDIvol (mGy) MEDICAL HISTORY : Hypertension. Diabetes mellitus type 2. SURGICAL HISTORY : Craniotomy. ENCOUNTER: Initial ACUITY: 1 day PAIN SCALE: 0/10 LOCATION: cranial TECHNIQUE: Multiple contiguous axial images were obtained of the head. Using automated exposure control and adj ustment of the mA and/or kV according to patient size, radiation dose was kept as low as reasonably a chievable to obtain optimal diagnostic quality images. DICOM format image data is available electro nically for review and comparison. FINDINGS: CEREBRUM: The ventricles are normal for age. No evidence of midline shift, mass lesion, hemorrhage or acute in farction. No extra-axial fluid collections are seen. POSTERIOR FOSSA: The cerebellum and brainstem are intact. The 4th ventricle is midline. The cerebellopontine angle i s unremarkable. EXTRACRANIAL: The visualized portion of the orbits is intact. Evidence of previous left posterior parietal cranioto my. SKULL: The calvaria is intact. No evidence of skull fracture. CONCLUSION: Unremarkable and stable CT scan of the brain. No significant change compared to the prior study. Zurdo Guerrero MD on October 21, 2016 at 9:04 Board Certified Radiologist. This report was verified electronically.
[2016-10-21 09:09] LABS: APTT (PATIENT) 29.6 SEC (24.3-30.1); PROTHROMBIN TIME - PATIENT 11.3 SEC (9.8-11.6)
[2016-10-21 09:21] LABS: ALKALINE PHOSPHATASE 84 U/L (45-117); ALT (GPT) 7 U/L (10-53); ANION GAP 11 MEQ/L (5-15); AST (GOT) 6 U/L (15-37); BICARBONATE 26.2 MEQ/L (21.0-32.0); BLOOD UREA NITROGEN 7 MG/DL (7-18); CHLORIDE 99 MEQ/L (98-107); GLOMERULAR FILTRATION RATE 78 ML/MIN (>89); MAGNESIUM 1.8 MG/DL (1.5-2.5); SODIUM (NA) 136 MEQ/L (136-145); TOTAL BILIRUBIN ADULT 0.4 MG/DL (0.2-1.0)
[2016-10-21 09:23] LABS: CREATINE KINASE 35 U/L (26-192)
[2016-10-21 09:25] LABS: POTASSIUM 2.8 MEQ/L (3.5-5.1)
--- NOTE | 2016-10-21 09:25 | RADRPT ---
EXAM DATE/TIME: 10/21/2016 09:00 [facility] COMPARISON: CHEST SINGLE AP, September 16, 2016, 10:46. INDICATIONS : Altered mental status. Fever. MEDICAL HISTORY : Hypertension. Diabetes mellitus type II. SURGICAL HISTORY : Craniotomy. ENCOUNTER: Initial ACUITY: 1 day PAIN SCORE: 0/10 LOCATION: Bilateral chest FINDINGS: There is mild infiltrate in the right lung base. The left lung is clear. Cardiomediastinal contours a re satisfactory. CONCLUSION: Mild right base infiltrate Braxton Anne MD on October 21, 2016 at 9:23 Board Certified Radiologist. This report was verified electronically.
[2016-10-21 09:39] LABS: BACTERIA, URINE MOD /hpf; BLOOD, URINE NEG (NEG); COMMENT (UR) CATH-CULTURE IND; CULTURE IF INDICATED CATH CULTURE IND; GLUCOSE,URINE NEG (NEG); KETONE, URINE NEG (NEG); MUCUS URINE FEW /lpf (OCC); NITRITE,URINE NEG (NEG); PH, URINE 6.5 (5.0-8.5); SQUAMOUS EPITHELIAL CELL URINE 6 /hpf (0-5); TRANSITIONAL EPI CELLS, URINE <1 /hpf; URINE COLOR YELLOW (YELLW/STRAW)
[2016-10-21] MEDS ORDERED: AZITHROMYCIN INJ 500 MG in SODIUM CHLOR 0.9% 250 ML INJ 250 ML IV ONE (09:45)
[2016-10-21] MEDS ORDERED: cefTRIAXone INJ 1,000 MG in SODIUM CHLORIDE 0.9% INJ 100 ML IV ONE (09:45)
[2016-10-21] MEDS ORDERED: POTASSIUM CHLORIDE 10 MEQ CONTROLLED RELEASE TAB PO ONE (09:45)
[2016-10-21 09:48] LABS: AMPHETAMINE, URINE NEG (NEG); BARBITURATES, URINE NEG (NEG); COCAINE, URINE NEG (NEG)
[2016-10-21] MEDS ORDERED: SODIUM CHLOR 0.9% 1000 ML INJ 1,000 ML IV SCH (10:17)
[2016-10-21] MEDS ORDERED: MAGNESIUM HYDROXIDE SUSP 30 ML CUP PO PRN (10:30)
[2016-10-21] MEDS ORDERED: ACETAMINOPHEN 325 MG TAB PO PRN (10:30)
[2016-10-21] MEDS ORDERED: NALOXONE HCL 0.4 MG/ML AMP IV PRN (10:30)
[2016-10-21] MEDS ORDERED: ONDANSETRON HCL 4 MG/2 ML VIAL IVP PRN (10:30)
[2016-10-21] MEDS ORDERED: LACTULOSE SYRUP 20 GM/30 ML CUP PO PRN (10:30)
[2016-10-21] MEDS ORDERED: SODIUM CHLORIDE 0.9% FLUSH 10 ML FLUSH IV FLUSH PRN (10:30)
[2016-10-21] MEDS ORDERED: BISACODYL 10 MG SUPP RECTAL PRN (10:30)
[2016-10-21] MEDS ORDERED: SENNOSIDES 8.6 MG TAB PO PRN (10:30)
[2016-10-21] MEDS: POTASSIUM CHLOR 20 MEQ PREMIX 100 ML IV SCH ×2 (10:34→12:26)
[2016-10-21 12:00] VITALS: BP 102/60; PULSE 82; RESP 22; TEMP 99.1; O2SAT 100
--- NOTE | 2016-10-21 15:46 | HHI.HP ---
[facility] Primary Care Physician Gil Miranda M.D. Admission Diagnosis Acute delirium secondary to UTI/Pneumonia Diagnoses: Chief Complaint: Altered mental status Travel History International Travel<30 Days: No Contact w/Intl Traveler <30 Da: No Traveled to Known Affected Are: No History of Present Illness This is a 50-year-old female past medical history of alcoholism, type 2 diabetes , recent right tibial plateau fracture status post ORIF done 1 month ago who was just recently released from SNF presents with altered mental status. During the interview patient would only answer some questions. When I first saw patient and asked her about her here she would not communicate at all. When I asked if her name was Breanna Mccarty she stated yes. I continue to ask more questions but she would not answer. Per Dr. Armenta patient was brought in by family members due to altered mental status. From medical records show that patient was mentally challenged. During my examination I was speaking out loud my physical findings. When I stated she had a right knee splint she started to talk and stated that she fractured her knee and that she was told to keep that on. I asked her further questioned she would not answer me. Unable to obtain review of systems secondary to questionable altered mental status versus her being mentally challenged. Past Family Social History Past Medical History Asthma Anxiety depression DM II GERD HPV history HIT Hypertension Past Surgical History Ankle ORIF Extraction of all teeth with mandible shaving Tonsillectomy Reported Medications Restoril (Temazepam) 7.5 Mg Cap 7.5 Mg PO HS PRN Potassium Chloride Microencaps 20 Meq Tab 20 Meq PO DAILY Glucophage (Metformin HCl) 500 Mg Tab 1,000 Mg PO BIDPC Glucotrol (Glipizide) 5 Mg Tab 7.5 Mg PO BID@08,17 Oxycodone-Acetaminophen 10-325 mg Tab 1 Tab PO Q4H PRN Calcium 600+D 200 (Calcium Carbonate-Vitamin D) 600-200 Mg-Unit Tab 1 Tab PO BID Vitamin D3 (Cholecalciferol) 2,000 Unit Cap 2,000 Units PO DAILY Xarelto (Rivaroxaban) 10 Mg Tab 10 Mg PO DAILY Keppra (Levetiracetam) 250 Mg Tab 250 Mg PO BID Gabapentin 600 Mg Tab 1,200 Mg PO BID Vesicare (Solifenacin) 5 Mg Tab 5 Mg PO DAILY Sertraline (Sertraline HCl) 50 Mg Tab 75 Mg PO DAILY Depakote ER (Divalproex Sodium) 250 Mg Celia 250 Mg PO BID Allergies: Coded Allergies: Iodine (Verified Allergy, Severe, SWELLING, 09/23/16) Patient states that she had the swelling and difficulty breathing after eating fish one time. She has eaten fish since that time with no other difficulties. Morphine (Verified Allergy, Severe, HEART COMPLICATIONS, 09/23/16) *MDRO Multi-Drug Resistant Organism (Verified Adverse Reaction, Unknown, ) ESBL + Klebsiella (urine) - 06/19/14 Active Ordered Medications Current Medications Ceftriaxone Sodium 1000 mg/ Sodium Chloride 100 ml @ 200 mls/hr ONCE ONCE IV Last administered on 10/21/16 10:14; Start 10/21/16 at 09:45; Stop 10/21/16 at 10:14; Status DC Azithromycin 500 mg/Sodium Chloride 250 ml @ 250 mls/hr ONCE ONCE IV Last administered on 10/21/16 10:14; Start 10/21/16 at 09:45; Stop 10/21/16 at 10:44 ; Status DC Potassium Chloride (KCl 20 Meq Premix Inj) 100 ml @ 50 mls/hr Q2H IV Last administered on 10/21/16 12:26; Start 10/21/16 at 09:45; Stop 10/21/16 at 13:44 ; Status DC Potassium Chloride 30 meq 30 meq ONCE ONCE PO Last administered on 10/21/16 10:14; Start 10/21/16 at 09:45; Stop 10/21/16 at 09:46; Status DC Sodium Chloride (NS 1000 ml Inj) 1,000 ml @ 100 mls/hr Q10H IV Last administered on 10/21/16 10:34; Start 10/21/16 at 10:17 Sodium Chloride (NS Flush) 2 ml UNSCH PRN IV FLUSH FLUSH AFTER USING IV ACCESS ; Start 10/21/16 at 10:30 Sodium Chloride (NS Flush) 2 ml BID IV FLUSH ; Start 10/21/16 at 21:00 Acetaminophen (Tylenol) 650 mg Q4H PRN PO TEMP > 100.4; Start 10/21/16 at 10:30 Ondansetron HCl (Zofran Inj) 4 mg Q6H PRN IVP NAUSEA OR VOMITING; Start at 10:30 Naloxone HCl (Narcan Inj) 0.4 mg UNSCH PRN IV SEE LABEL COMMENTS; Start at 10:30 Senna/Docusate Sodium (Eolina-Colace) 1 tab BID PO ; Start 10/21/16 at 21:00 Magnesium Hydroxide (Milk Of Magnesia Liq) 30 ml Q12H PRN PO MILD - MODERATE CONSTIPATION; Start 10/21/16 at 10:30 Sennosides (Senokot) 17.2 mg Q12H PRN PO MODERATE - SEVERE CONSTIPATION; Start 10/21/16 at 10:30 Bisacodyl (Dulcolax Supp) 10 mg DAILY PRN RECTAL SEVERE CONSITIPATION; Start at 10:30 Lactulose 30 ml 30 ml DAILY PRN PO SEVERE CONSITIPATION; Start 10/21/16 at 10: 30 Ceftriaxone Sodium 1000 mg/ Sodium Chloride 100 ml @ 200 mls/hr Q24H IV ; Start 10/22/16 at 09:00 Azithromycin/ Sodium Chloride (Zithromax Inj/ NS 250 ml Inj) 250 ml @ 250 mls/ hr Q24H IV ; Start 10/25/16 at 10:00 Family History Unable to obtain due to patient's mental status. Social History From medical records stated that patient has a history of alcohol abuse and drinks daily. Physical Exam Vital Signs Vital Signs Date Time Temp Pulse Resp B/P Pulse Ox O2 Delivery O2 Flow Rate FiO2 10/21/16 12:00 99.1 82 22 102/60 100 Nasal Cannula 2 10/21/16 08:41 96 Nasal Cannula 2 10/21/16 08:27 Nasal Cannula 2 10/21/16 08:21 99.4 93 25 110/58 Physical Exam GENERAL: This is a well-nourished, well-developed patient, in no apparent distress. SKIN: No rashes, ecchymoses or lesions. Cool and dry. HEAD: Atraumatic. Normocephalic. No temporal or scalp tenderness. EYES: Pupils equal round and reactive. Extraocular motions intact. No scleral icterus. No injection or drainage. ENT: Nose without bleeding, purulent drainage or septal hematoma. Throat without erythema, tonsillar hypertrophy or exudate. Uvula midline. Airway patent. Recessed lower jaw. NECK: Trachea midline. No JVD or lymphadenopathy. Supple, nontender, no meningeal signs. CARDIOVASCULAR: Regular rate and rhythm without murmurs, gallops, or rubs. RESPIRATORY: Clear to auscultation. Breath sounds equal bilaterally. No wheezes , rales, or rhonchi. GASTROINTESTINAL: Abdomen soft, non-tender, nondistended. No hepato-splenomegaly , or palpable masses. No guarding. MUSCULOSKELETAL: Right knee in soft splint. Negative Homans sign bilaterally. NEUROLOGICAL: Patient has eyes closed but intermittently speaks. Unable to assess her neurological exam. She does grossly moves all extremities. Laboratory Laboratory Tests Test 10/21/16 10/21/16 10/21/16 10/21/16 08:35 08:40 08:45 08:50 White Blood Count 8.4 Red Blood Count 3.53 Hemoglobin 10.3 Hematocrit 32.5 Mean Corpuscular Volume 91.8 Mean Corpuscular Hemoglobin 29.3 Mean Corpuscular Hemoglobin 31.9 Concent Red Cell Distribution Width 14.6 Platelet Count 198 Mean Platelet Volume 7.9 Neutrophils (%) (Auto) 79.2 Lymphocytes (%) (Auto) 7.7 Monocytes (%) (Auto) 12.5 Eosinophils (%) (Auto) 0.5 Basophils (%) (Auto) 0.1 Neutrophils # (Auto) 6.7 Lymphocytes # (Auto) 0.7 Monocytes # (Auto) 1.1 Eosinophils # (Auto) 0.0 Basophils # (Auto) 0.0 CBC Comment DIFF FINAL Differential Comment Prothrombin Time 11.3 Prothromb Time International 1.0 Ratio Activated Partial 29.6 Thromboplast Time Sodium Level 136 Potassium Level 2.8 Chloride Level 99 Carbon Dioxide Level 26.2 Anion Gap 11 Blood Urea Nitrogen 7 Creatinine 0.78 Estimat Glomerular Filtration 78 Rate Random Glucose 175 Calcium Level 8.6 Magnesium Level 1.8 Total Bilirubin 0.4 Aspartate Amino Transf 6 (AST/SGOT) Alanine Aminotransferase 7 (ALT/SGPT) Alkaline Phosphatase 84 Total Creatine Kinase 35 Troponin I LESS THAN 0.02 Total Protein 7.4 Albumin 2.9 Lipase 30 Acetaminophen Level LESS THAN 2.0 Lactic Acid Level 1.6 Salicylates Level LESS THAN 1.7 Urine Color YELLOW Urine Turbidity HAZY Urine pH 6.5 Urine Specific Tiger 1.009 Urine Protein TRACE Urine Glucose (UA) NEG Urine Ketones NEG Urine Occult Blood NEG Urine Nitrite NEG Urine Bilirubin NEG Urine Urobilinogen LESS THAN 2.0 Urine Leukocyte Esterase LARGE Urine RBC 5 Urine WBC 117 Urine Squamous Epithelial 6 Cells Urine Transitional Epithelial <1 Cells Urine Bacteria MOD Urine Mucus FEW Microscopic Urinalysis Comment CATH-CULTURE IND Urine Opiates Screen NEG Urine Barbiturates Screen NEG Urine Amphetamines Screen NEG Urine Benzodiazepines Screen NEG Urine Cocaine Screen NEG Urine Cannabinoids Screen NEG Date/Time Procedure Status Source Growth 10/21/16 08:50 Urine Culture Received Urine Catheterized Urine Pending 10/21/16 08:40 Aerobic Blood Culture Received Blood Peripheral Pending 10/21/16 08:40 Anaerobic Blood Culture Received Blood Peripheral Pending Result Diagram: 10/21/1683410/21/16834 Imaging Last Impressions Head CT 10/21/16834 Signed Impressions: Service Date/Time: October 08:56 - CONCLUSION: Unremarkable and stable CT scan of the brain. No significant change compared to the prior study. Zurdo Guerrero MD Chest X-Ray 10/21/16834 Signed Impressions: Service Date/Time: October 09:00 - CONCLUSION: Mild right base infiltrate Braxton Anne MD Assessment and Plan Assessment and Plan 50-year-old female with history of hypertension, depression/anxiety, type 2 diabetes, and recent admission secondary to right tibial plateau fracture status post ORIF who presented with questionable mental status changes Altered mental status -From medical records patient does have a mental disability versus this being metabolic due to infection. -Labs reviewed. Chest x-ray showed mid right base infiltrate and UA suggest UTI. -Treatment as below. -Her mental status seems to be improving. UTI -Will start patient on Rocephin pending urine cultures. Right middle lobe pneumonia -Treat empirically for community acquired pneumonia. -Will put patient on Rocephin and azithromycin. -Continue to monitor clinically. Type 2 diabetes -Will place patient on insulin sliding scope. -Adjustments based on blood sugars. Hypokalemia -replenish as needed. Status post right tibial plateau fracture with ORIF -Patient was recently released from SNF. Will consult PT. Alcoholism -put on CIWA protocol DVT prophylaxis -Xarelto Code Status unable to obtain Physician Certification 2 Midnight Certification Type: Admission for Inpatient Services Order for Inpatient Services The services are ordered in accordance with Medicare regulations or non- Medicare payer requirements, as applicable. In the case of services not specified as inpatient-only, they are appropriately provided as inpatient services in accordance with the 2-midnight benchmark. Estimated LOS (days): 3 3 days is the estimated time the patient will need to remain in the hospital, assuming treatment plan goals are met and no additional complications. Post-Hospital Plan: [place] Dacia Trevino MD Oct 21, 2016 15:46
[2016-10-21 15:51] VITALS: BP 96/55; PULSE 72; RESP 16; TEMP 98.7; O2SAT 97
[2016-10-21] MEDS ORDERED: LORazepam 2 MG/ML VIAL IV PUSH PRN ×4 (16:00)
[2016-10-21] MEDS ORDERED: LORazepam 1 MG TAB PO PRN (16:00)
[2016-10-21] MEDS ORDERED: DEXTROSE 50% IN WATER 50 ML VIAL(D50) IV PRN (16:00)
[2016-10-21] MEDS ORDERED: GLUCAGON 1 MG/ML VIAL OTHER PRN (16:00)
[2016-10-21] MEDS: INSULIN ASPART SUPPLEMENTAL SCALE SQ SCH ×2 (16:00→21:00)
[2016-10-21] MEDS ORDERED: FLUMAZENIL 0.5 MG/5 ML VIAL IV PUSH PRN (16:00)
[2016-10-21] MEDS ORDERED: LORazepam 2 MG TAB PO PRN (16:00)
[2016-10-21] MEDS ORDERED: DEXTROSE 50% IN WATER 50 ML SYRINGE ONE (16:10)
[2016-10-21] MEDS ORDERED: TEMAZEPAM 7.5 MG CAP PO PRN (16:15)
[2016-10-21] MEDS ORDERED: DEXTROSE 50% IN WATER 50 ML SYRINGE IV ONE (17:00)
[2016-10-21] MEDS: DEXT 5%-NACL 0.45% 1000 ML INJ 1,000 ML IV SCH (17:22)
[2016-10-21] MEDS ORDERED: PILL SPLITTER OTHER PRN (17:45)
[2016-10-21 17:47] VITALS: BP 100/57; PULSE 72; RESP 18; TEMP 97.4; O2SAT 100
[2016-10-21 17:48] VITALS: PULSE 69
[2016-10-21 20:06] VITALS: BP 94/53; PULSE 66; RESP 16; TEMP 97.8; O2SAT 99
[2016-10-21] MEDS: SODIUM CHLORIDE 0.9% FLUSH 10 ML FLUSH IV FLUSH SCH (22:04)
[2016-10-21] MEDS: GABAPENTIN 300 MG CAP PO SCH (22:05)
[2016-10-21] MEDS: CALCIUM/VITAMIN D 250 MG/125 U TAB PO SCH (22:05)
[2016-10-21] MEDS: levETIRAcetam 250 MG TAB PO SCH (22:05)
[2016-10-21] MEDS: DOCUSATE SODIUM 50 MG/SENNA 8.6 MG TAB PO SCH (22:05)
[2016-10-21] MEDS: DIVALPROEX SODIUM E.R. 250 MG TAB PO SCH (22:05)
[2016-10-22] VITALS (7 sets, daily range): BP systolic 92–123; BP diastolic 54–68; PULSE 67–81; RESP 16–18; TEMP 97.5–98.7; O2SAT 95–98
[2016-10-22] MEDS: INSULIN ASPART SUPPLEMENTAL SCALE SQ SCH ×4 (06:14→21:00)
[2016-10-22] MEDS: DEXT 5%-NACL 0.45% 1000 ML INJ 1,000 ML IV SCH ×2 (06:14→19:10)
[2016-10-22] MEDS: POTASSIUM CHLORIDE 20 MEQ CONTROLLED RELEASE TAB PO SCH (08:33)
[2016-10-22] MEDS: GABAPENTIN 300 MG CAP PO SCH ×2 (08:33→20:25)
[2016-10-22] MEDS: CHOLECALCIFEROL (VIT D3) 1000 UNIT TAB PO SCH (08:34)
[2016-10-22] MEDS: DIVALPROEX SODIUM E.R. 250 MG TAB PO SCH ×2 (08:34→20:25)
[2016-10-22] MEDS: DOCUSATE SODIUM 50 MG/SENNA 8.6 MG TAB PO SCH ×2 (08:35→20:27)
[2016-10-22] MEDS: RIVAROXABAN 10 MG TAB PO SCH (08:35)
[2016-10-22] MEDS: levETIRAcetam 250 MG TAB PO SCH ×2 (08:35→20:26)
[2016-10-22] MEDS: cefTRIAXone INJ 1,000 MG in SODIUM CHLORIDE 0.9% INJ 100 ML IV SCH (08:38)
[2016-10-22] MEDS: CALCIUM/VITAMIN D 250 MG/125 U TAB PO SCH ×2 (08:41→20:25)
[2016-10-22] MEDS: SODIUM CHLORIDE 0.9% FLUSH 10 ML FLUSH IV FLUSH SCH ×2 (08:41→20:26)
[2016-10-22 08:44] LABS: HEMATOCRIT 30.7 % (35.0-46.0); MEAN CELL VOLUME 91.2 FL (80.0-100.0); MEAN CORPUSCULAR HEMOGLOBIN 29.9 PG (27.0-34.0); MEAN CORPUSCULAR HGB CONC 32.7 % (32.0-36.0); PLATELET COUNT 171 TH/MM3 (150-450); RED BLOOD COUNT 3.37 MIL/MM3 (4.00-5.30); RED CELL DISTRIBUTION WIDTH 14.7 % (11.6-17.2); REVIEW FLAG FINAL; WHITE BLOOD COUNT 4.5 TH/MM3 (4.0-11.0)
[2016-10-22] MEDS: TOLTERODINE TARTRATE 2 MG CAP LA PO SCH (08:46)
[2016-10-22] MEDS: SERTRALINE HCL 50 MG TAB PO SCH (08:47)
[2016-10-22 09:16] LABS: BICARBONATE 27.2 MEQ/L (21.0-32.0); POTASSIUM 3.3 MEQ/L (3.5-5.1)
--- NOTE | 2016-10-22 09:40 | HHI.PR ---
Subjective Remarks The patient was teary-eyed. She wanted to go home. She denied any pain on urination. She did not have any cough or difficulty breathing. She wanted something to eat. Discussed with nursing. She denied any pain. Objective Vitals Vital Signs Date Time Temp Pulse Resp B/P Pulse Ox O2 Delivery O2 Flow Rate FiO2 10/22/16 08:00 98.1 70 18 107/55 97 10/22/16 04:27 98.7 67 16 92/54 95 10/22/16 04:00 Room Air 10/22/16 01:34 97.9 70 18 101/58 96 10/22/16 00:00 Room Air 10/21/16 20:06 97.8 66 16 94/53 99 10/21/16 20:00 Room Air 10/21/16 17:48 69 10/21/16 17:47 97.4 72 18 100/57 100 10/21/16 15:51 98.7 72 16 96/55 97 Nasal Cannula 2 10/21/16 12:00 99.1 82 22 102/60 100 Nasal Cannula 2 I/O 10/21/16 10/21/16 10/21/16 10/22/16 10/22/16 10/22/16 07:00 15:00 23:00 07:00 15:00 23:00 Intake Total 386 ml 605 ml Balance 386 ml 605 ml Intake IV Total 386 ml 605 ml Result Diagram: 10/22/16 0810 10/22/16 0810 Imaging Last Impressions Head CT 10/21/16 0835 Signed Impressions: Service Date/Time: October 08:56 - CONCLUSION: Unremarkable and stable CT scan of the brain. No significant change compared to the prior study. Zurdo Guerrero MD Chest X-Ray 10/21/16 0835 Signed Impressions: Service Date/Time: October 09:00 - CONCLUSION: Mild right base infiltrate Braxton Anne MD Objective Remarks GENERAL: This is a well-nourished, well-developed patient, in no apparent distress. SKIN: No rashes, ecchymoses or lesions. Cool and dry. HEAD: Atraumatic. Normocephalic. No temporal or scalp tenderness. EYES: Pupils equal round and reactive. Extraocular motions intact. No scleral icterus. No injection or drainage. ENT: Nose without bleeding, purulent drainage or septal hematoma. Throat without erythema, tonsillar hypertrophy or exudate. Uvula midline. Airway patent. Recessed lower jaw. NECK: Trachea midline. No JVD or lymphadenopathy. Supple, nontender, no meningeal signs. CARDIOVASCULAR: Regular rate and rhythm without murmurs, gallops, or rubs. RESPIRATORY: Clear to auscultation. Breath sounds equal bilaterally. No wheezes , rales, or rhonchi. GASTROINTESTINAL: Abdomen soft, non-tender, nondistended. No hepato-splenomegaly , or palpable masses. No guarding. MUSCULOSKELETAL: Right knee in soft splint. No edema. NEUROLOGICAL: Moves extremities spontaneously. PSYCH: Teary-eyed. Medications and IVs Current Medications Medications (Trade) Dose Ordered Sig/Parish Route Start Time Stop Time Status Last Admin (NS Flush) 2 ml UNSCH PRN IV FLUSH 10/21/16 10:30 (NS Flush) 2 ml BID IV FLUSH 10/21/16 21:00 10/21/16 22:04 (Tylenol) 650 mg Q4H PRN PO 10/21/16 10:30 (Zofran Inj) 4 mg Q6H PRN IVP 10/21/16 10:30 (Narcan Inj) 0.4 mg UNSCH PRN IV 10/21/16 10:30 (Eloina-Colace) 1 tab BID PO 10/21/16 21:00 10/22/16 08:35 (Milk Of Magnesia Liq) 30 ml Q12H PRN PO 10/21/16 10:30 (Senokot) 17.2 mg Q12H PRN PO 10/21/16 10:30 (Dulcolax Supp) 10 mg DAILY PRN RECTAL 10/21/16 10:30 Lactulose 30 ml 30 ml DAILY PRN PO 10/21/16 10:30 Ceftriaxone Sodium 1000 mg/ Sodium Chloride 100 ml @ 200 mls/hr Q24H IV 10/22/16 09:00 10/22/16 08:38 (Zithromax Inj/ NS 250 ml Inj) 250 ml @ 250 mls/hr Q24H IV 10/25/16 10:00 (D50w (Vial) Inj) 50 ml UNSCH PRN IV 10/21/16 16:00 (Glucagon Inj) 1 mg UNSCH PRN OTHER 10/21/16 16:00 (Romazicon Inj) 0.2 mg Q1M PRN IV PUSH 10/21/16 16:00 (Ativan) 1 mg Q4H PRN PO 10/21/16 16:00 (Ativan Inj) 1 mg Q4H PRN IV PUSH 10/21/16 16:00 (Ativan) 2 mg Q2H PRN PO 10/21/16 16:00 (Ativan Inj) 2 mg Q2H PRN IV PUSH 10/21/16 16:00 (Ativan Inj) 2 mg Q1H PRN IV PUSH 10/21/16 16:00 (Ativan Inj) 2 mg Q15M PRN IV PUSH 10/21/16 16:00 (Vitamin D3) 2,000 units DAILY PO 10/22/16 09:00 10/22/16 08:34 (Depakote Er) 250 mg BID PO 10/21/16 21:00 10/22/16 08:34 (Neurontin) 1,200 mg BID PO 10/21/16 21:00 10/22/16 08:33 (Keppra) 250 mg BID PO 10/21/16 21:00 10/22/16 08:35 (KCl) 20 meq DAILY PO 10/22/16 09:00 10/22/16 08:33 (Xarelto) 10 mg DAILY PO 10/22/16 09:00 10/22/16 08:35 (Zoloft) 75 mg DAILY PO 10/22/16 09:00 10/22/16 08:47 (Restoril) 7.5 mg HS PRN PO 10/21/16 16:15 (Oscal-D 250-125) 2 mg BID PO 10/21/16 21:00 10/22/16 08:41 Tolterodine Tartrate 2 mg 2 mg DAILY PO 10/22/16 09:00 10/22/16 08:46 (D5W-1/2 NS 1000 ml Inj) 1,000 ml @ 75 mls/hr [id number] IV 10/21/16 16:30 10/22/16 06:14 (Pill Splitter) 1 ea UNSCH PRN OTHER 10/21/16 17:45 A/P Assessment and Plan 50-year-old female with history of hypertension, depression/anxiety, type 2 diabetes, and recent admission secondary to right tibial plateau fracture status post ORIF who presented with questionable mental status changes Altered mental status From medical records patient does have a mental disability at baseline. Possibly metabolic due to infection. Chest x-ray showed mild right base infiltrate and UA suggest UTI. - Treatment as below. - physical therapy. - swallow eval. UTI UA indicative of infection. - Will start patient on Rocephin pending urine cultures. Right middle lobe pneumonia CXR as above. - she was started on treatment for community acquired pneumonia with Rocephin and azithromycin. The pt was recently hospitalized. If she shows signs of pneumonia or has fever/ leukocytosis, would treat for hospital acquired PNA. - incentive spirometry. - encourage ambulation. - oxygen and nebs as needed. - sputum culture, blood cultures. Type 2 diabetes The pt was hypoglycemic upon arrival Well controlled 10/22. - insulin sliding scale. Hypokalemia Potassium still low. - replenish as needed. Also on 20 meq daily. Status post right tibial plateau fracture with ORIF Patient was recently released from SNF. - PT/ OT. - pain control with a bowel regimen. Alcoholism No evidence for withdrawal. - put on CIWA protocol. DVT prophylaxis: Xarelto Discharge Planning Will likely need SNF. Anticipate 1-2 days. Louis Cherry DO Oct 22, 2016 09:40
[2016-10-22] MEDS ORDERED: POTASSIUM CHLORIDE 25 MEQ EFFERVESCENT TAB PO ONE (09:45)
--- NOTE | 2016-10-22 16:37 | EKG ---
Date Performed: 10/21/2016 Time Performed: 09:13:24 PTAGE: 50 years EKG: Sinus rhythm BORDERLINE LEFT AXIS DEVIATION NONSPECIFIC T-WAVE ABNORMALITY Compared to previous tracing, T wave c hanges are more prominent BORDERLINE ECG PREVIOUS TRACING : 09/16/2016 15.37 DOCTOR: Hernandez Monson Interpretating Date/Time 10/22/2016 16:36:21
[2016-10-23] VITALS (7 sets, daily range): BP systolic 99–125; BP diastolic 53–67; PULSE 72–88; RESP 17–19; TEMP 97.9–98.7; O2SAT 91–98
[2016-10-23] MEDS: INSULIN ASPART SUPPLEMENTAL SCALE SQ SCH ×4 (06:27→21:00)
[2016-10-23] MEDS: DEXT 5%-NACL 0.45% 1000 ML INJ 1,000 ML IV SCH ×2 (06:32→22:00)
[2016-10-23] MEDS ORDERED: POTASSIUM CHLORIDE 10 MEQ CONTROLLED RELEASE TAB PO ONE (08:00)
[2016-10-23 08:12] LABS: HEMATOCRIT 30.4 % (35.0-46.0); MEAN CELL VOLUME 90.6 FL (80.0-100.0); MEAN CORPUSCULAR HEMOGLOBIN 29.8 PG (27.0-34.0); MEAN CORPUSCULAR HGB CONC 32.9 % (32.0-36.0); PLATELET COUNT 159 TH/MM3 (150-450); RED BLOOD COUNT 3.36 MIL/MM3 (4.00-5.30); RED CELL DISTRIBUTION WIDTH 14.6 % (11.6-17.2); REVIEW FLAG FINAL; WHITE BLOOD COUNT 3.9 TH/MM3 (4.0-11.0)
[2016-10-23 08:34] LABS: BICARBONATE 27.1 MEQ/L (21.0-32.0); MAGNESIUM 1.6 MG/DL (1.5-2.5); POTASSIUM 3.7 MEQ/L (3.5-5.1)
[2016-10-23] MEDS: levETIRAcetam 250 MG TAB PO SCH ×2 (08:49→21:58)
[2016-10-23] MEDS: RIVAROXABAN 10 MG TAB PO SCH (08:49)
[2016-10-23] MEDS: CHOLECALCIFEROL (VIT D3) 1000 UNIT TAB PO SCH (08:49)
[2016-10-23] MEDS: CALCIUM/VITAMIN D 250 MG/125 U TAB PO SCH ×2 (08:49→22:00)
[2016-10-23] MEDS: SERTRALINE HCL 50 MG TAB PO SCH (08:49)
[2016-10-23] MEDS: TOLTERODINE TARTRATE 2 MG CAP LA PO SCH (08:50)
[2016-10-23] MEDS: DOCUSATE SODIUM 50 MG/SENNA 8.6 MG TAB PO SCH ×2 (08:50→21:59)
[2016-10-23] MEDS: POTASSIUM CHLORIDE 20 MEQ CONTROLLED RELEASE TAB PO SCH (08:50)
[2016-10-23] MEDS: GABAPENTIN 300 MG CAP PO SCH ×2 (08:50→21:58)
[2016-10-23] MEDS: SODIUM CHLORIDE 0.9% FLUSH 10 ML FLUSH IV FLUSH SCH ×2 (08:52→21:58)
[2016-10-23] MEDS: cefTRIAXone INJ 1,000 MG in SODIUM CHLORIDE 0.9% INJ 100 ML IV SCH (08:52)
[2016-10-23] MEDS: DIVALPROEX SODIUM E.R. 250 MG TAB PO SCH ×2 (08:54→21:58)
--- NOTE | 2016-10-23 17:36 | HHI.PR ---
Subjective Remarks fu metabolic encephalopathy, UTI, hypokalemia, type 2 diabetes patient denies cp/sob denies fevers/chills seems to be sleeping initially - awake when aroused stable vital signs Objective Vitals Vital Signs Date Time Temp Pulse Resp B/P Pulse Ox O2 Delivery O2 Flow Rate FiO2 10/23/16 16:00 98.2 80 17 118/62 96 10/23/16 14:07 74 10/23/16 12:00 98.5 75 17 108/59 95 10/23/16 09:15 Room Air 10/23/16 08:00 97.9 72 17 99/55 91 10/23/16 04:00 98.6 88 18 109/53 94 10/23/16 00:00 98.2 77 18 125/67 98 10/22/16 23:39 76 10/22/16 20:00 98.6 81 18 123/68 98 I/O 10/22/16 10/22/16 10/22/16 10/23/16 10/23/16 10/23/16 07:00 15:00 23:00 07:00 15:00 23:00 Intake Total 605 ml 360 ml 739 ml 480 ml Balance 605 ml 360 ml 739 ml 480 ml Intake Oral 360 ml 32 ml 480 ml IV Total 605 ml 707 ml # Voids 6 2 7 # Bowel Movements 2 0 Result Diagram: 10/23/1672510/23/16725 Imaging Last Impressions Head CT 10/21/16834 Signed Impressions: Service Date/Time: October 08:56 - CONCLUSION: Unremarkable and stable CT scan of the brain. No significant change compared to the prior study. Zurdo Guerrero MD Chest X-Ray 10/21/16834 Signed Impressions: Service Date/Time: October 09:00 - CONCLUSION: Mild right base infiltrate Braxton Anne MD Objective Remarks AAOx2, initially sleeping, awake when aroused, nad Breath sound CTA BL S1S2 RRR, no MRG Medications and IVs Current Medications Medications (Trade) Dose Ordered Sig/Parish Route Start Time Stop Time Status Last Admin (NS Flush) 2 ml UNSCH PRN IV FLUSH 10/21/16 10:30 (NS Flush) 2 ml BID IV FLUSH 10/21/16 21:00 10/23/16 08:52 (Tylenol) 650 mg Q4H PRN PO 10/21/16 10:30 (Zofran Inj) 4 mg Q6H PRN IVP 10/21/16 10:30 (Narcan Inj) 0.4 mg UNSCH PRN IV 10/21/16 10:30 (Eloina-Colace) 1 tab BID PO 10/21/16 21:00 10/22/16 08:35 (Milk Of Magnesia Liq) 30 ml Q12H PRN PO 10/21/16 10:30 (Senokot) 17.2 mg Q12H PRN PO 10/21/16 10:30 (Dulcolax Supp) 10 mg DAILY PRN RECTAL 10/21/16 10:30 Lactulose 30 ml 30 ml DAILY PRN PO 10/21/16 10:30 Ceftriaxone Sodium 1000 mg/ Sodium Chloride 100 ml @ 200 mls/hr Q24H IV 10/22/16 09:00 10/23/16 08:52 (Zithromax Inj/ NS 250 ml Inj) 250 ml @ 250 mls/hr Q24H IV 10/25/16 10:00 (D50w (Vial) Inj) 50 ml UNSCH PRN IV 10/21/16 16:00 (Glucagon Inj) 1 mg UNSCH PRN OTHER 10/21/16 16:00 (Romazicon Inj) 0.2 mg Q1M PRN IV PUSH 10/21/16 16:00 (Ativan) 1 mg Q4H PRN PO 10/21/16 16:00 (Ativan Inj) 1 mg Q4H PRN IV PUSH 10/21/16 16:00 (Ativan) 2 mg Q2H PRN PO 10/21/16 16:00 (Ativan Inj) 2 mg Q2H PRN IV PUSH 10/21/16 16:00 (Ativan Inj) 2 mg Q1H PRN IV PUSH 10/21/16 16:00 (Ativan Inj) 2 mg Q15M PRN IV PUSH 10/21/16 16:00 (Vitamin D3) 2,000 units DAILY PO 10/22/16 09:00 10/23/16 08:49 (Depakote Er) 250 mg BID PO 10/21/16 21:00 10/23/16 08:54 (Neurontin) 1,200 mg BID PO 10/21/16 21:00 10/23/16 08:50 (Keppra) 250 mg BID PO 10/21/16 21:00 10/23/16 08:49 (KCl) 20 meq DAILY PO 10/22/16 09:00 10/23/16 08:50 (Xarelto) 10 mg DAILY PO 10/22/16 09:00 10/23/16 08:49 (Zoloft) 75 mg DAILY PO 10/22/16 09:00 10/23/16 08:49 (Restoril) 7.5 mg HS PRN PO 10/21/16 16:15 (Oscal-D 250-125) 2 mg BID PO 10/21/16 21:00 10/23/16 08:49 Tolterodine Tartrate 2 mg 2 mg DAILY PO 10/22/16 09:00 10/23/16 08:50 (D5W-1/2 NS 1000 ml Inj) 1,000 ml @ 75 mls/hr [id number] IV 10/21/16 16:30 10/23/16 06:32 (Pill Splitter) 1 ea UNSCH PRN OTHER 10/21/16 17:45 A/P Problem List: (1) Encephalopathy acute ICD Code: G93.40 Status: Acute (2) UTI (lower urinary tract infection) ICD Code: N39.0 Status: Acute (3) Pneumonia ICD Code: J18.9 Status: Acute (4) Acute delirium ICD Code: R41.0 Status: Acute (5) Hypokalemia ICD Code: E87.6 Status: Acute (6) Alcohol abuse ICD Code: F10.10 Status: Chronic Assessment and Plan 50-year-old female with history of hypertension, depression/anxiety, type 2 diabetes, and recent admission secondary to right tibial plateau fracture status post ORIF who presented with questionable mental status changes Metabolic encephalopathy From medical records patient does have a mental disability at baseline. Possibly metabolic due to infection. Chest x-ray showed mild right base infiltrate and UA suggest UTI. - Treatment as below. - physical therapy. - Therapy recommended regular diet and thin liquids. UTI UA indicative of infection. Started on IV Rocephin empirically. 10/23 urine culture is growing Escherichia coli, Enterococcus faecalis and Mandy albicans. I will add IV vancomycin, continue IV Rocephin but increase the dose to 2 g IV daily and start oral fluconazole. HCAP/RML pneumonia CXR as above. - she was started on treatment for community acquired pneumonia with Rocephin and azithromycin. - incentive spirometry. - encourage ambulation. - oxygen and nebs as needed. - Blood cultures negative to date. 10/23 patient has good oxygen saturation. I will start the patient IV vancomycin , continue IV Rocephin and IV azithromycin. Type 2 diabetes The pt was hypoglycemic upon arrival Well controlled 10/22. 10/23 Bloos sugar is starting to trend up, patient is more awake than previous days however still sleepy.Continue SSI with insulin Novolog for now. Metformin and glipizide held on admission. We'll likely resume once the patient is fully awake. Hypokalemia Potassium has been replaced orally. Potassium critically low at 2.8 on admission. Potassium within normal range today. Status post right tibial plateau fracture with ORIF Patient was recently released from SNF. - PT/ OT. - pain control with a bowel regimen. Alcoholism No evidence for withdrawal. - put on CIWA protocol. DVT prophylaxis: Xarelto Discharge Planning Continue to monitor in the medical floor. DC in a.m. if patient stable. Problem Qualifiers (1) Pneumonia: Qualified Code: J18.1 - Pneumonia of right lower lobe due to infectious organism David Urbina MD Oct 23, 2016 17:36
[2016-10-23] MEDS ORDERED: AMPICILLIN INJ 2,000 MG in SODIUM CHLORIDE 0.9% INJ 100 ML IV SCH (18:00)
[2016-10-23] MEDS: VANCOMYCIN INJ 1,000 MG in SODIUM CHLOR 0.9% 250 ML INJ 250 ML IV SCH (18:35)
[2016-10-23] MEDS: FLUCONAZOLE 100 MG TAB PO SCH (18:35)
[2016-10-23] MEDS ORDERED: AZITHROMYCIN INJ 500 MG in SODIUM CHLOR 0.9% 250 ML INJ 250 ML IV SCH (20:00)
[2016-10-23] MEDS ORDERED: cefTRIAXone INJ 2,000 MG in SODIUM CHLORIDE 0.9% INJ 100 ML IV SCH (21:00)
[2016-10-24] VITALS (8 sets, daily range): BP systolic 96–125; BP diastolic 55–70; PULSE 67–91; RESP 16–21; TEMP 97.7–99.1; O2SAT 96–100
[2016-10-24] MEDS ORDERED: ACETAMINOPHEN 325 MG TAB PO ONE (00:45)
[2016-10-24] MEDS: VANCOMYCIN INJ 1,000 MG in SODIUM CHLOR 0.9% 250 ML INJ 250 ML IV SCH (05:56)
[2016-10-24] MEDS: INSULIN ASPART SUPPLEMENTAL SCALE SQ SCH ×4 (06:41→21:00)
[2016-10-24 09:04] LABS: AUTOMATED NEUTROPHIL # 1.8 TH/MM3 (1.8-7.7); BASOPHIL # 0.1 TH/MM3 (0-0.2); BASOPHIL % 1.7 % (0.0-2.0); EOSINOPHIL # 0.2 TH/MM3 (0-0.4); EOSINOPHIL % 3.7 % (0.0-4.0); HEMATOCRIT 30.1 % (35.0-46.0); HEMO FLAGS DIFF FINAL; LYMPH % 36.5 % (9.0-44.0); LYMPHOCYTE # 1.6 TH/MM3 (1.0-4.8); MEAN CORPUSCULAR HEMOGLOBIN 29.4 PG (27.0-34.0); MEAN CORPUSCULAR HGB CONC 32.3 % (32.0-36.0); MONO % 17.1 % (0.0-8.0); PLATELET COUNT 174 TH/MM3 (150-450); RED CELL DISTRIBUTION WIDTH 14.7 % (11.6-17.2); WHITE BLOOD COUNT 4.4 TH/MM3 (4.0-11.0)
[2016-10-24 09:34] LABS: ALKALINE PHOSPHATASE 65 U/L (45-117); ALT (GPT) LESS THAN 6 U/L (10-53); ANION GAP 7 MEQ/L (5-15); AST (GOT) LESS THAN 3 U/L (15-37); BICARBONATE 28.2 MEQ/L (21.0-32.0); BLOOD UREA NITROGEN 2 MG/DL (7-18); CHLORIDE 107 MEQ/L (98-107); GLOMERULAR FILTRATION RATE 136 ML/MIN (>89); MAGNESIUM 1.6 MG/DL (1.5-2.5); POTASSIUM 3.5 MEQ/L (3.5-5.1); SODIUM (NA) 142 MEQ/L (136-145); TOTAL BILIRUBIN ADULT 0.2 MG/DL (0.2-1.0)
[2016-10-24] MEDS: RIVAROXABAN 10 MG TAB PO SCH (09:54)
[2016-10-24] MEDS: CHOLECALCIFEROL (VIT D3) 1000 UNIT TAB PO SCH (09:54)
[2016-10-24] MEDS: SERTRALINE HCL 50 MG TAB PO SCH (09:54)
[2016-10-24] MEDS: POTASSIUM CHLORIDE 20 MEQ CONTROLLED RELEASE TAB PO SCH (09:54)
[2016-10-24] MEDS: TOLTERODINE TARTRATE 2 MG CAP LA PO SCH (09:54)
[2016-10-24] MEDS: DIVALPROEX SODIUM E.R. 250 MG TAB PO SCH ×2 (09:54→22:34)
[2016-10-24] MEDS: CALCIUM/VITAMIN D 250 MG/125 U TAB PO SCH ×2 (09:54→22:33)
[2016-10-24] MEDS: FLUCONAZOLE 100 MG TAB PO SCH (09:54)
[2016-10-24] MEDS: levETIRAcetam 250 MG TAB PO SCH ×2 (09:54→22:34)
[2016-10-24] MEDS: SODIUM CHLORIDE 0.9% FLUSH 10 ML FLUSH IV FLUSH SCH ×2 (09:55→22:34)
[2016-10-24] MEDS: DOCUSATE SODIUM 50 MG/SENNA 8.6 MG TAB PO SCH ×2 (09:55→21:00)
[2016-10-24] MEDS: GABAPENTIN 300 MG CAP PO SCH ×2 (09:55→22:34)
[2016-10-24] MEDS: DEXT 5%-NACL 0.45% 1000 ML INJ 1,000 ML IV SCH (12:42)
--- NOTE | 2016-10-24 16:29 | HHI.PR ---
Subjective Remarks patient is more awake and alert denies cough, cp, sob denies fevers and chills has good appetite Objective Vitals Vital Signs Date Time Temp Pulse Resp B/P Pulse Ox O2 Delivery O2 Flow Rate FiO2 10/24/16 16:00 99.1 80 16 96/58 100 10/24/16 12:00 97.7 73 16 97/59 97 10/24/16 09:45 Room Air 10/24/16 08:00 98.1 69 16 118/70 98 10/24/16 04:30 98.4 67 21 125/65 96 10/24/16 01:00 73 10/24/16 00:20 98.1 84 19 115/60 97 10/23/16 20:15 98.7 80 19 118/59 98 I/O 10/23/16 10/23/16 10/23/16 10/24/16 10/24/16 10/24/16 07:00 15:00 23:00 07:00 15:00 23:00 Intake Total 814 ml 1080 ml 1113 ml 1344 ml 480 ml Output Total 800 ml Balance 814 ml 1080 ml 1113 ml 544 ml 480 ml Intake Oral 32 ml 480 ml 625 ml 575 ml 480 ml IV Total 782 ml 600 ml 488 ml 769 ml Output Urine Total 800 ml # Voids 2 7 2 3 # Bowel Movements 0 0 0 1 Result Diagram: 10/24/1672410/24/16724 Imaging Last Impressions Head CT 10/21/16834 Signed Impressions: Service Date/Time: October 08:56 - CONCLUSION: Unremarkable and stable CT scan of the brain. No significant change compared to the prior study. Zurdo Guerrero MD Chest X-Ray 10/21/16834 Signed Impressions: Service Date/Time: October 09:00 - CONCLUSION: Mild right base infiltrate Braxton Anne MD Objective Remarks AAOx2, initially sleeping, awake when aroused, nad Breath sound CTA BL S1S2 RRR, no MRG Procedures none Medications and IVs Current Medications Medications (Trade) Dose Ordered Sig/Parish Route Start Time Stop Time Status Last Admin (NS Flush) 2 ml UNSCH PRN IV FLUSH 10/21/16 10:30 (NS Flush) 2 ml BID IV FLUSH 10/21/16 21:00 10/23/16 21:58 (Tylenol) 650 mg Q4H PRN PO 10/21/16 10:30 (Zofran Inj) 4 mg Q6H PRN IVP 10/21/16 10:30 (Narcan Inj) 0.4 mg UNSCH PRN IV 10/21/16 10:30 (Eloina-Colace) 1 tab BID PO 10/21/16 21:00 10/23/16 21:59 (Milk Of Magnesia Liq) 30 ml Q12H PRN PO 10/21/16 10:30 (Senokot) 17.2 mg Q12H PRN PO 10/21/16 10:30 (Dulcolax Supp) 10 mg DAILY PRN RECTAL 10/21/16 10:30 (Lactulose Liq) 30 ml DAILY PRN PO 10/21/16 10:30 (D50w (Vial) Inj) 50 ml UNSCH PRN IV 10/21/16 16:00 (Glucagon Inj) 1 mg UNSCH PRN OTHER 10/21/16 16:00 (Romazicon Inj) 0.2 mg Q1M PRN IV PUSH 10/21/16 16:00 (Ativan) 1 mg Q4H PRN PO 10/21/16 16:00 (Ativan Inj) 1 mg Q4H PRN IV PUSH 10/21/16 16:00 (Ativan) 2 mg Q2H PRN PO 10/21/16 16:00 (Ativan Inj) 2 mg Q2H PRN IV PUSH 10/21/16 16:00 (Ativan Inj) 2 mg Q1H PRN IV PUSH 10/21/16 16:00 (Ativan Inj) 2 mg Q15M PRN IV PUSH 10/21/16 16:00 (Vitamin D3) 2,000 units DAILY PO 10/22/16 09:00 10/24/16 09:54 (Depakote Er) 250 mg BID PO 10/21/16 21:00 10/24/16 09:54 (Neurontin) 1,200 mg BID PO 10/21/16 21:00 10/24/16 09:55 (Keppra) 250 mg BID PO 10/21/16 21:00 10/24/16 09:54 (KCl) 20 meq DAILY PO 10/22/16 09:00 10/24/16 09:54 (Xarelto) 10 mg DAILY PO 10/22/16 09:00 10/24/16 09:54 (Zoloft) 75 mg DAILY PO 10/22/16 09:00 10/24/16 09:54 (Restoril) 7.5 mg HS PRN PO 10/21/16 16:15 Tolterodine Tartrate 2 mg 2 mg DAILY PO 10/22/16 09:00 10/24/16 09:54 (D5W-1/2 NS 1000 ml Inj) 1,000 ml @ 75 mls/hr [id number] IV 10/21/16 16:30 10/24/16 12:42 (Pill Splitter) 1 ea UNSCH PRN OTHER 10/21/16 17:45 Fluconazole 100 mg 100 mg DAILY PO 10/23/16 18:15 10/24/16 09:54 Azithromycin 500 mg/Sodium Chloride 250 ml @ 250 mls/hr Q24H IV 10/23/16 20:00 10/23/16 21:57 Ceftriaxone Sodium 2000 mg/ Sodium Chloride 100 ml @ 200 mls/hr Q24H IV 10/23/16 21:00 10/23/16 21:57 (Vancomycin Inj/ NS 250 ml Inj) 250 ml @ 250 mls/hr Q12H IV 10/23/16 18:00 10/24/16 05:56 (Oscal-D 250-125) 500 mg BID PO 10/23/16 21:15 10/24/16 09:54 Urinary Catheter: No Vascular Central Line Catheter: No A/P Problem List: (1) Encephalopathy acute ICD Code: G93.40 Status: Acute (2) UTI (lower urinary tract infection) ICD Code: N39.0 Status: Acute (3) Pneumonia ICD Code: J18.9 Status: Acute (4) Acute delirium ICD Code: R41.0 Status: Acute (5) Hypokalemia ICD Code: E87.6 Status: Acute (6) Alcohol abuse ICD Code: F10.10 Status: Chronic Assessment and Plan 50-year-old female with history of hypertension, depression/anxiety, type 2 diabetes, and recent admission secondary to right tibial plateau fracture status post ORIF who presented with questionable mental status changes Metabolic encephalopathy From medical records patient does have a mental disability at baseline. Possibly metabolic due to infection. Chest x-ray showed mild right base infiltrate and UA suggest UTI. - Treatment as below. - physical therapy. - Therapy recommended regular diet and thin liquids. UTI UA indicative of infection. Started on IV Rocephin empirically. 10/23 urine culture is growing Escherichia coli, Enterococcus faecalis and Mandy albicans. I will add IV vancomycin, continue IV Rocephin but increase the dose to 2 g IV daily and start oral fluconazole. 10/24 Will DC Vancomycin and Rocephin. start on PO Ampicillin and Cefuroxime. HCAP/RML pneumonia CXR as above. - she was started on treatment for community acquired pneumonia with Rocephin and azithromycin. - incentive spirometry. - encourage ambulation. - oxygen and nebs as needed. - Blood cultures negative to date. 10/23 patient has good oxygen saturation. I will start the patient IV vancomycin , continue IV Rocephin and IV azithromycin. 10/24 Will DC IV antibiotics and start patient on oral antibiotics as above. Type 2 diabetes The pt was hypoglycemic upon arrival Well controlled 10/22. 10/23 Bloos sugar is starting to trend up, patient is more awake than previous days however still sleepy.Continue SSI with insulin Novolog for now. Metformin and glipizide held on admission. We'll likely resume once the patient is fully awake. 10/24 Blood sugars severely elevated. Will resume Metformin and Glipizide and Continue SSI with insulin Novolog. Hypokalemia Potassium has been replaced orally. Potassium critically low at 2.8 on admission. Potassium within normal range today. Status post right tibial plateau fracture with ORIF Patient was recently released from SNF. - PT/ OT. - pain control with a bowel regimen. Alcoholism No evidence for withdrawal. - put on CIWA protocol. DVT prophylaxis: Xarelto Discharge Planning Continue to monitor in the medical floor. DC in a.m. if patient stable. Problem Qualifiers (1) Pneumonia: Qualified Code: J18.1 - Pneumonia of right lower lobe due to infectious organism David Urbina MD Oct 24, 2016 16:28
[2016-10-24] MEDS ORDERED: SODIUM CHLORID 0.9% 500 ML INJ 500 ML IV ONE (16:30)
[2016-10-24] MEDS ORDERED: POTASSIUM CHLORIDE 20 MEQ CONTROLLED RELEASE TAB PO ONE (16:45)
[2016-10-24] MEDS: glipiZIDE 5 MG TAB PO SCH (17:56)
[2016-10-24] MEDS: AMOXICILLIN (TRIHYDRATE) 500 MG CAP PO SCH (17:56)
[2016-10-24] MEDS: metFORMIN HCL 500 MG TAB PO SCH (17:56)
[2016-10-24] MEDS: CEFUROXIME AXETIL 500 MG TAB PO SCH (22:33)
[2016-10-25] VITALS: BP 115/65; PULSE 88; RESP 19; TEMP 97.7; O2SAT 97
[2016-10-25] MEDS: AMOXICILLIN (TRIHYDRATE) 500 MG CAP PO SCH ×3 (00:29→13:38)
[2016-10-25 06:00] VITALS: BP 112/60; PULSE 76; RESP 18; TEMP 97.8; O2SAT 96
[2016-10-25] MEDS: INSULIN ASPART SUPPLEMENTAL SCALE SQ SCH ×2 (06:14→11:00)
[2016-10-25 08:00] VITALS: BP 121/71; PULSE 89; RESP 15; TEMP 98.6; O2SAT 92
[2016-10-25] MEDS: glipiZIDE 5 MG TAB PO SCH (08:00)
[2016-10-25] MEDS: TOLTERODINE TARTRATE 2 MG CAP LA PO SCH (08:41)
[2016-10-25] MEDS: FLUCONAZOLE 100 MG TAB PO SCH (08:41)
[2016-10-25] MEDS: RIVAROXABAN 10 MG TAB PO SCH (08:41)
[2016-10-25] MEDS: CEFUROXIME AXETIL 500 MG TAB PO SCH (08:41)
[2016-10-25] MEDS: levETIRAcetam 250 MG TAB PO SCH (08:41)
[2016-10-25] MEDS: GABAPENTIN 300 MG CAP PO SCH (08:41)
[2016-10-25] MEDS: CHOLECALCIFEROL (VIT D3) 1000 UNIT TAB PO SCH (08:42)
[2016-10-25] MEDS: DIVALPROEX SODIUM E.R. 250 MG TAB PO SCH (08:42)
[2016-10-25] MEDS: POTASSIUM CHLORIDE 20 MEQ CONTROLLED RELEASE TAB PO SCH (08:42)
[2016-10-25] MEDS: DOCUSATE SODIUM 50 MG/SENNA 8.6 MG TAB PO SCH (08:42)
[2016-10-25] MEDS: metFORMIN HCL 500 MG TAB PO SCH (08:42)
[2016-10-25] MEDS: SERTRALINE HCL 50 MG TAB PO SCH (08:42)
[2016-10-25] MEDS: CALCIUM/VITAMIN D 250 MG/125 U TAB PO SCH (08:43)
[2016-10-25] MEDS: SODIUM CHLORIDE 0.9% FLUSH 10 ML FLUSH IV FLUSH SCH (08:43)
[2016-10-25] MEDS ORDERED: AZITHROMYCIN 250 MG TAB PO SCH (09:00)
[2016-10-25] MEDS ORDERED: AZITHROMYCIN INJ 250 MG in SODIUM CHLOR 0.9% 250 ML INJ 250 ML IV SCH (10:00)
[2016-10-25 12:00] VITALS: BP 105/56; PULSE 94; RESP 16; TEMP 98.5; O2SAT 96
[2016-10-25] MEDS ORDERED: AZIT250T3 PO (12:52)
[2016-10-25] MEDS ORDERED: CEFU1TAB20 PO (12:52)
[2016-10-25] MEDS ORDERED: AMOX500C PO (12:52)
[2016-10-25] MEDS ORDERED: DIFL100T PO (12:52)
[2016-10-25] MEDS ORDERED: TEMA7.5C9 PO (12:52)
--- NOTE | 2016-10-25 12:54 | HHI.DS ---
Discharge Summary Admission Date Oct 21, 2016 at 10:25 Discharge Date: Oct 25, 2016 Admitting Diagnosis Acute delirium secondary to UTI/Pneumonia (1) Encephalopathy acute ICD Code: G93.40 Diagnosis: Principal (2) UTI (lower urinary tract infection) ICD Code: N39.0 Diagnosis: Principal (3) Pneumonia ICD Code: J18.9 Diagnosis: Principal (4) Hypokalemia ICD Code: E87.6 Diagnosis: Secondary (5) Alcohol abuse ICD Code: F10.10 Diagnosis: Secondary (6) Tibial plateau fracture, right ICD Code: S82.141A Diagnosis: Secondary Procedures none Brief History - From Admission This is a 50-year-old female past medical history of alcoholism, type 2 diabetes , recent right tibial plateau fracture status post ORIF done 1 month ago who was just recently released from SNF presents with altered mental status. During the interview patient would only answer some questions. When I first saw patient and asked her about her here she would not communicate at all. When I asked if her name was Breanna Mccarty she stated yes. I continue to ask more questions but she would not answer. Per Dr. Armenta patient was brought in by family members due to altered mental status. From medical records show that patient was mentally challenged. During my examination I was speaking out loud my physical findings. When I stated she had a right knee splint she started to talk and stated that she fractured her knee and that she was told to keep that on. I asked her further questioned she would not answer me. Unable to obtain review of systems secondary to questionable altered mental status versus her being mentally challenged. CBC/BMP: 10/24/16 0725 10/24/16 0725 Significant Findings Laboratory Tests Test 10/23/16 10/24/16 07:26 07:25 White Blood Count 3.9 TH/MM3 (4.0-11.0) Red Blood Count 3.36 MIL/MM3 3.30 MIL/MM3 (4.00-5.30) (4.00-5.30) Hemoglobin 10.0 GM/DL 9.7 GM/DL (11.6-15.3) (11.6-15.3) Hematocrit 30.4 % 30.1 % (35.0-46.0) (35.0-46.0) Blood Urea Nitrogen 5 MG/DL (7-18) 2 MG/DL (7-18) Random Glucose 184 MG/DL 152 MG/DL (74-106) (74-106) Calcium Level 8.3 MG/DL 8.1 MG/DL (8.5-10.1) (8.5-10.1) Monocytes (%) (Auto) 17.1 % (0.0-8.0) Creatinine 0.48 MG/DL (0.50-1.00) Aspartate Amino Transf LESS THAN 3 (AST/SGOT) U/L (15-37) Alanine Aminotransferase LESS THAN 6 (ALT/SGPT) U/L (10-53) Total Protein 5.6 GM/DL (6.4-8.2) Albumin 2.2 GM/DL (3.4-5.0) Imaging Last Impressions Head CT 10/21/16 0835 Signed Impressions: Service Date/Time: October 08:56 - CONCLUSION: Unremarkable and stable CT scan of the brain. No significant change compared to the prior study. Zurdo Guerrero MD Chest X-Ray 10/21/16834 Signed Impressions: Service Date/Time: October 09:00 - CONCLUSION: Mild right base infiltrate Braxton Anne MD PE at Discharge GENERAL: In no acute distress patient is alert and answer questions appropriately. CARDIOVASCULAR: Regular rate and rhythm without murmurs, gallops, or rubs. RESPIRATORY: Breath sounds equal bilaterally. No accessory muscle use. GASTROINTESTINAL: Abdomen soft, non-tender, nondistended. Pt update on day of discharge f/u UTI and altered mental status Patient is AAO 3. She has no complaints. She's very anxious to go home. I told patient the recommendation that PT recommends a snap. Patient stated that she wants to go home. Otherwise she has no other complaints. Hospital Course 50-year-old female with history of hypertension, depression/anxiety, type 2 diabetes, and recent admission secondary to right tibial plateau fracture status post ORIF who presented with questionable mental status changes Metabolic encephalopathy From medical records patient does have a mental disability at baseline. Possibly metabolic due to infection. Chest x-ray showed mild right base infiltrate and UA suggest UTI. - Treatment as below. - physical therapy. - Therapy recommended regular diet and thin liquids. UTI UA indicative of infection. Started on IV Rocephin empirically. 10/23 urine culture is growing Escherichia coli, Enterococcus faecalis and Mandy albicans. I will add IV vancomycin, continue IV Rocephin but increase the dose to 2 g IV daily and start oral fluconazole. 10/24 Will DC Vancomycin and Rocephin. start on PO Ampicillin and Cefuroxime. Patient continued to do well on oral antibiotics. HCAP/RML pneumonia CXR as above. - she was started on treatment for community acquired pneumonia with Rocephin and azithromycin. - incentive spirometry. - encourage ambulation. - oxygen and nebs as needed. - Blood cultures negative to date. 10/23 patient has good oxygen saturation. I will start the patient IV vancomycin , continue IV Rocephin and IV azithromycin. 10/24 Will DC IV antibiotics and start patient on oral antibiotics as above. Patient continued to do well on oral antibiotics Type 2 diabetes The pt was hypoglycemic upon arrival Well controlled 10/22. 10/23 Blood sugar is starting to trend up, patient is more awake than previous days however still sleepy.Continue SSI with insulin Novolog for now. Metformin and glipizide held on admission. We'll likely resume once the patient is fully awake. 10/24 Blood sugars severely elevated so home medication was resumed. Patient to follow with her primary care provider in regards to her diabetes management. Hypokalemia Potassium has been replaced orally. Potassium critically low at 2.8 on admission. Potassium within normal range today. Status post right tibial plateau fracture with ORIF Patient was recently released from SNF. - PT/ OT. - pain control with a bowel regimen. -PT recommended SNF but patient declined and wants to go home. Patient was discharged from SNF prior to this admission. Alcoholism No evidence for withdrawal. - put on CIWA protocol. DVT prophylaxis: Xarelto Pt Condition on Discharge: Good Discharge Disposition: Discharge to SNF Discharge Time: > 30 minutes Discharge Instructions DIET: Follow Instructions for: Heart Healthy Diet, Diabetic Diet Activities you can perform: Regular-No Restrictions Follow up Referrals: Orthopedics - 2 Weeks SNF/[facility]/ - Next Day New Medications: Amoxicillin (Amoxicillin) 500 Mg Cap 500 MG PO Q6HR UTI Days 4 Ref 0 CAP Azithromycin (Azithromycin) 250 Mg Tab 500 MG PO DAILY lung infection #1 Ref 0 TAB Cefuroxime (Cefuroxime) 500 Mg Tab 500 MG PO Q12HR lung infection #8 Ref 0 TAB Fluconazole (Diflucan) 100 Mg Tab 100 MG PO DAILY yeast infection #4 Ref 0 TAB Continued Medications: Calcium Carbonate-Vitamin D (Calcium 600+D 200) 600-200 Mg-Unit Tab 1 TAB PO BID Nutritional Supplement #60 Ref 0 TAB Cholecalciferol (Vitamin D3) 2,000 Unit Cap 2000 UNITS PO DAILY Nutritional Supplement #30 Ref 0 CAP Divalproex ER (Depakote ER) 250 Mg Celia 250 MG PO BID Control Seizures #60 Ref 0 TAB Gabapentin (Gabapentin) 600 Mg Tab 1200 MG PO BID #120 Ref 0 TAB Glipizide (Glucotrol) 5 Mg Tab 7.5 MG PO BID@08,17 #90 TAB Levetiracetam (Keppra) 250 Mg Tab 250 MG PO BID Control Seizures #60 Ref 0 TAB Metformin (Glucophage) 500 Mg Tab 1000 MG PO BIDPC #120 TAB Potassium Chloride Microencaps (Potassium Chloride Microencaps) 20 Meq Tab 20 MEQ PO DAILY #30 TAB Rivaroxaban (Xarelto) 10 Mg Tab 10 MG PO DAILY Blood Clot Prevention #7 Ref 0 TAB Sertraline (Sertraline) 50 Mg Tab 75 MG PO DAILY #45 Ref 0 TAB Solifenacin (Vesicare) 5 Mg Tab 5 MG PO DAILY Urinary Symptom Managemen #30 Ref 0 TAB Temazepam (Restoril) 7.5 Mg Cap 7.5 MG PO HS PRN INSOMNIA #30 Ref 0 CAP (This prescription has been renewed) Discontinued Medications: Oxycodone-Acetaminophen (Oxycodone-Acetaminophen) 10-325 mg Tab 1 TAB PO Q4H PRN PAIN SCALE 1 TO 10 #60 TAB Dacia Trevino MD Oct 25, 2016 12:54
--- NOTE | 2016-10-25 15:28 | HHI.FF ---
Face to Face Verification Diagnosis: (1) Impaired mobility and activities of daily living (2) Right tibial fracture Physical Therapy Order: Evaluate and Treat, Improve ambulation, Strength and gait training Home Health Nursing Order: Medical education Signs/symptoms of disease process Nursing assessment with vital signs I have seen patient Breanna Morrell on 10/25/16. My clinical findings support the need for the requested home health care services because: Deconditioned w/ increased weakness High risk of falls I certify that my clinical findings support that this patient is homebound because: Post-op weakness Unsteady gait/balance Dacia Trevino MD Oct 25, 2016 15:28
== END 2016-10-25 16:40 | disposition home health service (06) | DRG 193 ==
LOC: NEPC 08:17 → NEDA 10:25 → N05A 16:54
PROVIDERS: ADMIT Family Medicine; ATTEND Family Medicine
DX: J18.9 Pneumonia, unspecified organism (principal); G93.40 Encephalopathy, unspecified; N39.0 Urinary tract infection, site not specified; B37.49 Other urogenital candidiasis; E11.9 Type 2 diabetes mellitus without complications; I10 Essential (primary) hypertension; B95.2 Enterococcus as the cause of diseases classified elsewhere; B96.20 Unspecified Escherichia coli [E. coli] as the cause of diseases classified elsewhere; Z79.84 Long term (current) use of oral hypoglycemic drugs; F32.9 Major depressive disorder, single episode, unspecified; E87.6 Hypokalemia; F79 Unspecified intellectual disabilities; F41.9 Anxiety disorder, unspecified; S82.141D Displaced bicondylar fracture of right tibia, subsequent encounter for closed fracture with routine healing; Y95 Nosocomial condition; F10.10 Alcohol abuse, uncomplicated; D64.9 Anemia, unspecified; K21.9 Gastro-esophageal reflux disease without esophagitis
CPT/HCPCS: 70450; 71010; 80048; 80053; 80307; 81001; 82550; 82948; 83605; 83690; 83735; 84100; 84132; 84484; 85025; 85027; 85610; 85730; 87040; 87086; 93005; 94150; 96374; J0456; J0696; J1815; J3370; J3480; J7030; J7040; J7050

== ENCOUNTER 2017-08-12 13:09 | Emergency (ER) | payer OTHER ==
[~2017-08-12] VITALS: Ht 160 cm; Wt 54.0 kg
[~2017-08-12 13:09] MED LIST changes: -OXYC1TAB36 PO; -VESI5TAB PO; +VESI5TAB2 PO; -WHEEMIS3; -XARE10TA PO
[2017-08-12 13:18] VITALS: BP 115/57; PULSE 104; RESP 14; TEMP 98.3; O2SAT 96
--- NOTE | 2017-08-12 13:39 | PD ---
HPI Chief Complaint: Diabetic Time Seen by Provider: 13:39 Travel History International Travel<30 days: No Contact w/Intl Traveler<30days: No Traveled to known affect area: No History of Present Illness HPI 51-year-old female came to the emergency room with history of high sugar for past few days. Patient says it is running in the 400s. Patient went to the urgent care today and was asked to come here. The bedside blood sugar was 574. Patient says she has been nauseous and vomited and also having diarrhea today. Her boyfriend has diarrhea too. Patient is slightly tachycardic. No history of fever. She has polydipsia and polyuria. She says she has been feeling very thirsty. Patient says she has been taking her diabetes medications like she supposed to [facility] Past Medical History Narrative Medical List of her past medical, surgical, social and family history is reviewed from the nursing note. Arthritis: No Asthma: Yes Autoimmune Disease: No Anxiety: Yes Depression: Yes Heart Rhythm Problems: Yes (TACHYCARDIA) Cancer: No Cardiovascular Problems: Yes High Cholesterol: No Chemotherapy: No Chest Pain: Yes Congestive Heart Failure: No COPD: No Cerebrovascular Accident: No Diabetes: Yes Diminished Hearing: Yes ([place] L SIDE) Endocrine: Yes Gastrointestinal Disorders: No GERD: Yes Genitourinary: Yes Headaches: No Hiatal Hernia: No Heparin Induced Thrombocytopen: Yes Hypertension: Yes Immune Disorder: No Implanted Vascular Access Dvce: Yes Kidney Stones: No Musculoskeletal: No Neurologic: Yes Psychiatric: Yes (BIPOLAR) Reproductive: Yes (HPV) Respiratory: Yes Migraines: No Radiation Therapy: No Renal Failure: No Seizures: Yes Sickle Cell Disease: No Sleep Apnea: No Thyroid Disease: No Ulcer: No ?: Not LMP: 2 months Menopausal: Yes : 2 Para: 1 Miscarriage: 0 : 1 Past Surgical History Abdominal Surgery: No AICD: No Arteriovenous Shunt: No Cardiac Surgery: No Ear Surgery: No Endocrine Surgery: No Eye Surgery: No Genitourinary Surgery: No Gynecologic Surgery: No Insulin Pump: No Joint Replacement: Yes (ANKLE ORIF) Neurologic Surgery: Yes (Craniotomy) Oral Surgery: Yes (EXTRACTION OF ALL TEETH WITH MANDIBLE SHAVING; TONSILLECTOMY ) Pacemaker: No Thoracic Surgery: No Tonsillectomy: Yes Other Surgery: Yes Social History Alcohol Use: Yes (OCC) Tobacco Use: No Substance Use: No Allergies-Medications (Allergen,Severity, Reaction): Coded Allergies: iodine (Unverified Allergy, Severe, SWELLING, 08/12/17) Patient states that she had the swelling and difficulty breathing after eating fish one time. She has eaten fish since that time with no other difficulties. morphine (Unverified Allergy, Severe, HEART COMPLICATIONS, 08/12/17) potassium iodide (Unverified Allergy, Severe, SWELLING, 08/12/17) Patient states that she had the swelling and difficulty breathing after eating fish one time. She has eaten fish since that time with no other difficulties. povidone-iodine (Unverified Allergy, Severe, SWELLING, 08/12/17) Patient states that she had the swelling and difficulty breathing after eating fish one time. She has eaten fish since that time with no other difficulties. sodium iodide (Unverified Allergy, Severe, SWELLING, 08/12/17) Patient states that she had the swelling and difficulty breathing after eating fish one time. She has eaten fish since that time with no other difficulties. sodium iodide (Unverified Allergy, Severe, SWELLING, 08/12/17) Patient states that she had the swelling and difficulty breathing after eating fish one time. She has eaten fish since that time with no other difficulties. *MDRO Multi-Drug Resistant Organism (Verified Adverse Reaction, Unknown, ) ESBL + Klebsiella (urine) - 06/19/14 Comments List of her allergies reviewed from the nursing note. Reported Meds & Prescriptions Reported Meds & Active Scripts Active Gabapentin 600 Mg Tab 1,200 Mg PO BID Depakote ER (Divalproex Sodium) 250 Mg Celia 250 Mg PO BID Reported Lantus Inj (Insulin Glargine) 1,000 Unit/10 Ml Vial 25 Units SQ HS Jardiance (Empagliflozin) 25 Mg Tab 25 Mg PO DAILY Narrative Medication List of her home medications reviewed from the nursing note. Review of Systems Except as stated in HPI: all other systems reviewed are Neg Endocrine: Positive: Polyuria, Polydipsia Physical Exam Narrative GENERAL: Awake, alert, mild distress SKIN: Focused skin assessment warm/dry. HEAD: Atraumatic. Normocephalic. EYES: Pupils equal and round. No scleral icterus. No injection or drainage. ENT: No nasal bleeding or discharge. Mucous membranes pink and moist. NECK: Trachea midline. No JVD. CARDIOVASCULAR: Regular rate and rhythm. No murmur appreciated. RESPIRATORY: No accessory muscle use. Clear to auscultation. Breath sounds equal bilaterally. GASTROINTESTINAL: Abdomen soft, non-tender, nondistended. Hepatic and splenic margins not palpable. MUSCULOSKELETAL: No obvious deformities. No clubbing. No cyanosis. No edema. NEUROLOGICAL: Awake and alert. No obvious cranial nerve deficits. Motor grossly within normal limits. Normal speech. PSYCHIATRIC: Appropriate mood and affect; insight and judgment normal. Data Data Last Documented VS Vital Signs Date Time Temp Pulse Resp B/P (MAP) Pulse Ox O2 Delivery O2 Flow Rate FiO2 08/12/17 16:41 08/12/17 15:57 76 16 95 Room Air 08/12/17 13:18 98.3 Orders Orders Complete Blood Count With Diff (08/12/17 13:47) Comprehensive Metabolic Panel (08/12/17 13:47) Beta Hydroxybutyrate (Acetone) (08/12/17 13:47) Urinalysis - C+S If Indicated (08/12/17 13:47) Blood Gas Venous (Vbg) (08/12/17 13:47) Ecg Monitoring (08/12/17 13:47) Iv Access Insert/Monitor (08/12/17 13:47) Oximetry (08/12/17 13:47) NPO (08/12/17 13:47) Sodium Chlor 0.9% 1000 Ml Inj (Ns 1000 M (08/12/17 13:47) Sodium Chlor 0.9% 1000 Ml Inj (Ns 1000 M (08/12/17 14:17) Sodium Chloride 0.9% Flush (Ns Flush) (08/12/17 14:00) Insulin Human Regular Inj (Novolin R Inj (08/12/17 14:00) Blood Glucose (08/12/17 14:52) Ed Discharge Order (08/12/17 16:12) Labs Laboratory Tests Test 08/12/17 13:50 08/12/17 14:01 08/12/17 14:05 White Blood Count 8.0 TH/MM3 Red Blood Count 4.15 MIL/MM3 Hemoglobin 13.1 GM/DL Hematocrit 38.9 % Mean Corpuscular Volume 93.8 FL Mean Corpuscular Hemoglobin 31.5 PG Mean Corpuscular Hemoglobin Concent 33.6 % Red Cell Distribution Width 12.8 % Platelet Count 209 TH/MM3 Mean Platelet Volume 8.7 FL Neutrophils (%) (Auto) 77.0 % Lymphocytes (%) (Auto) 12.9 % Monocytes (%) (Auto) 9.1 % Eosinophils (%) (Auto) 0.6 % Basophils (%) (Auto) 0.4 % Neutrophils # (Auto) 6.3 TH/MM3 Lymphocytes # (Auto) 1.0 TH/MM3 Monocytes # (Auto) 0.7 TH/MM3 Eosinophils # (Auto) 0.0 TH/MM3 Basophils # (Auto) 0.0 TH/MM3 CBC Comment DIFF FINAL Differential Comment Blood Urea Nitrogen 15 MG/DL Creatinine 0.84 MG/DL Random Glucose 564 MG/DL Total Protein 7.1 GM/DL Albumin 3.4 GM/DL Calcium Level 8.1 MG/DL Alkaline Phosphatase 76 U/L Aspartate Amino Transf (AST/SGOT) 6 U/L Alanine Aminotransferase (ALT/SGPT) 13 U/L Total Bilirubin 0.4 MG/DL Sodium Level 132 MEQ/L Potassium Level 4.0 MEQ/L Chloride Level 95 MEQ/L Carbon Dioxide Level 25.3 MEQ/L Anion Gap 12 MEQ/L Estimat Glomerular Filtration Rate 71 ML/MIN B-Hydroxybutyrate 0.10 MMOL/L Urine Collection Type CLEAN CATCH Urine Color YELLOW Urine Turbidity CLEAR Urine pH 5.0 Urine Specific [place] LESS/EQUAL 1.005 Urine Protein NEG mg/dL Urine Glucose (UA) 1000 OR GREATER mg/dL Urine Ketones NEG mg/dL Urine Occult Blood NEG Urine Nitrite NEG Urine Bilirubin NEG Urine Urobilinogen 0.2 MG/DL Urine Leukocyte Esterase NEG Urine RBC 0-3 /hpf Urine WBC 0-2 /hpf Urine Squamous Epithelial Cells 0-5 /hpf Microscopic Urinalysis Comment CULT NOT INDICATED Blood Gas Puncture Site AC Blood Gas Patient Temperature 98.6 Venous Blood pH 7.33 Venous Blood Partial Pressure CO2 57 mmHg Venous Blood Partial Pressure O2 16 mmHg Venous Blood HCO3 29 mmol/L Venous Blood Oxygen Saturation 17 % Venous Blood Oxygen Content 3.2 Vol % Venous Blood Base Excess 3.8 mmol/L Oxygen Delivery Device ROOM AIR Blood Gas Inspired Oxygen 21 % MDM Medical Decision Making Medical Screen Exam Complete: Yes Emergency Medical Condition: Yes Medical Record Reviewed: Yes Differential Diagnosis DKA, hyperglycemia, dehydration, electrolyte abnormality Narrative Course 2:55 PM patient was given 2 L of IV fluid bolus and IV insulin. Her repeat blood glucose after 1 L of IV fluid and insulin was 385. She has to finish another liter and I would repeat the blood glucose again. Rest of the blood test results do not show any evidence of DKA. Patient will be discharged home after that. 4:11 PM repeat blood glucose after the 2 L of IV fluid bolus is 157. I will discharge her home. Procedures EKG Prior to Arrival: No Diagnosis Primary Impression: Hyperglycemia Referrals: Primary Care Physician 3 days Additional Instructions: Strict diabetes dietary control. Check your blood sugar twice a day and take medications accordingly. Return to the ER if condition worsens or any other new concerns. Otherwise you should be seen by a primary care by Tuesday. Disposition: DISCHARGE HOME Condition: Stable Yusra Rodriguez MD Aug 12, 2017 13:39
[2017-08-12] MEDS ORDERED: SODIUM CHLOR 0.9% 1000 ML INJ 1,000 ML IV ONE ×2 (13:47→14:17)
[2017-08-12 13:50] VITALS: O2SAT 96
[2017-08-12] MEDS ORDERED: INSULIN HUMAN REGULAR 1,000 UNITS/10 ML VIAL IV PUSH ONE (14:00)
[2017-08-12] MEDS ORDERED: SODIUM CHLORIDE 0.9% FLUSH 10 ML FLUSH IVF PRN (14:00)
[2017-08-12] MEDS ORDERED: LANTUS2P SQ (14:11)
[2017-08-12] MEDS ORDERED: EMPA1TAB3 PO (14:11)
[2017-08-12 14:28] LABS: BILIRUBIN, URINE NEG (NEG); BLOOD, URINE NEG (NEG); GLUCOSE,URINE 1000 OR GREATER mg/dL (NEG); KETONE, URINE NEG (NEG); NITRITE,URINE NEG (NEG); URINE COLOR YELLOW (YELLW/STRAW); URINE LEUKOCYTE ESTERASE NEG (NEG)
[2017-08-12 14:28] LABS: AUTOMATED NEUTROPHIL # 6.3 TH/MM3 (1.8-7.7); BASOPHIL % 0.4 % (0.0-2.0); EOSINOPHIL % 0.6 % (0.0-4.0); HEMATOCRIT 38.9 % (35.0-46.0); HEMOGLOBIN 13.1 GM/DL (11.6-15.3); LYMPH % 12.9 % (9.0-44.0); MEAN CELL VOLUME 93.8 FL (80.0-100.0); MEAN CORPUSCULAR HEMOGLOBIN 31.5 PG (27.0-34.0); MEAN CORPUSCULAR HGB CONC 33.6 % (32.0-36.0); MEAN PLATELET VOLUME 8.7 FL (7.0-11.0); MONO % 9.1 % (0.0-8.0); MONOCYTE # 0.7 TH/MM3 (0-0.9); PLATELET COUNT 209 TH/MM3 (150-450); RED BLOOD COUNT 4.15 MIL/MM3 (4.00-5.30); RED CELL DISTRIBUTION WIDTH 12.8 % (11.6-17.2)
[2017-08-12 14:34] LABS: RBC, URINE 0-3 /hpf (0-3); SQUAMOUS EPITHELIAL CELL URINE 0-5 /hpf (0-5); WBC, URINE 0-2 /hpf (0-5)
[2017-08-12 14:35] LABS: CHLORIDE 95 MEQ/L (98-107); SODIUM (NA) 132 MEQ/L (136-145)
[2017-08-12 14:39] LABS: ALBUMIN 3.4 GM/DL (3.4-5.0); BICARBONATE 25.3 MEQ/L (21.0-32.0); CALCIUM 8.1 MG/DL (8.5-10.1)
[2017-08-12 14:40] LABS: BLOOD UREA NITROGEN 15 MG/DL (7-18)
[2017-08-12 14:42] LABS: ALT (GPT) 13 U/L (10-53); AST (GOT) 6 U/L (15-37)
[2017-08-12 14:43] LABS: CREATININE 0.84 MG/DL (0.50-1.00); GLOMERULAR FILTRATION RATE 71 ML/MIN (>89)
[2017-08-12 14:44] LABS: TOTAL BILIRUBIN ADULT 0.4 MG/DL (0.2-1.0); TOTAL PROTEIN 7.1 GM/DL (6.4-8.2)
[2017-08-12 14:45] LABS: ALKALINE PHOSPHATASE 76 U/L (45-117)
[2017-08-12 14:48] LABS: GLUCOSE,RANDOM 564 MG/DL (74-106)
[2017-08-12 15:07] VITALS: BP 100/56; PULSE 82; RESP 16; O2SAT 95
[2017-08-12 15:57] VITALS: BP 92/54; PULSE 76; RESP 16; O2SAT 95
== END 2017-08-12 16:43 | disposition home or self-care (01) ==
LOC: PHED 13:09
DX: E11.65 Type 2 diabetes mellitus with hyperglycemia (principal); I10 Essential (primary) hypertension; J45.909 Unspecified asthma, uncomplicated; F41.9 Anxiety disorder, unspecified; F32.9 Major depressive disorder, single episode, unspecified; K21.9 Gastro-esophageal reflux disease without esophagitis
CPT/HCPCS: 80053; 81001; 82010; 82805; 85025; 96361; 96374; 99284; J1815; J7030

== ENCOUNTER 2017-11-29 15:46 | Observation (INO) ==
[2017-11-29 17:14] LABS: Baso % (Auto) 0.5 % (0.0-2.0); Eos # (Auto) 0.1 th/mm3 (0.0-0.4); Eos % (Auto) 1.2 % (0.0-4.0); Hematocrit 41.7 % (35.0-46.0); Hemoglobin 13.6 gm/dL (11.6-15.3); Lymph # (Auto) 1.8 th/mm3 (1.0-4.8); Lymph % (Auto) 31.9 % (9.0-44.0); Mean Corpuscular HGB Conc 32.7 % (32.0-36.0); Mean Corpuscular Hemoglobin 31.8 pg (27.0-34.0); Mean Corpuscular Volume 97.2 fL (80.0-100.0); Mono # (Auto) 0.5 th/mm3 (0.0-0.9); Mono % (Auto) 8.8 % (0.0-8.0); Neut # (Auto) 3.2 th/mm3 (1.8-7.7); Neut % (Auto) 57.6 % (16.0-70.0); Platelet Count 189 th/mm3 (150-450); Red Blood Count 4.29 mil/mm3 (4.00-5.30); Red Cell Distribution Width 13.3 % (11.6-17.2); White Blood Count 5.5 th/mm3 (4.0-11.0)
--- NOTE | 2017-11-29 17:20 | XR ---
EXAM DATE: 11/29/2017 4:36 PM EDT AGE/SEX: 52 years / Female INDICATIONS: Left sided chest pain. CLINICAL DATA: This is the patient's initial encounter. Patient reports that signs and symptoms have been present for 3 days and indicates a pain score of 8/10. MEDICAL/SURGICAL HISTORY: None. None. COMPARISON: [facility] – [place], CHEST SINGLE AP, 10/21/2016. . FINDINGS: A single AP view of the chest demonstrates the lungs to be symmetrically aerated without evidence of mass, infiltrate or effusion. The cardiomediastinal contours are unremarkable. Osseous structures a re intact. There are faint interfaces overlying the lower aspects of the third, fourth and fifth ribs similar to October 2016. I don't see any definite evidence of a pneumothorax CONCLUSION: Negative examination. No definite evidence of pneumothorax Electronically signed by: Zev Huff MD 11/29/2017 5:19 PM EDT
[2017-11-29 17:26] LABS: Activated Partial Thrombo Time 22.7 sec (24.3-30.1); INR 0.9 Ratio; Prothrombin Time 9.1 sec (9.8-11.6)
[2017-11-29 17:40] LABS: Alanine Aminotransferase 14 U/L (10-53); Albumin 3.4 g/dL (3.4-5.0); Alkaline Phosphatase 68 U/L (45-117); Anion Gap 8 meq/L (5-15); Aspartate Aminotransferase 7 U/L (15-37); Blood Urea Nitrogen 13 mg/dL (7-18); Calcium 8.3 mg/dL (8.5-10.1); Chloride 98 meq/L (98-107); Glomerular Filtration Rate 79 mL/min (>89); Glucose,Random 426 mg/dL (74-106); Lipase 123 U/L (73-393); Magnesium 2.2 mg/dL (1.5-2.5); Potassium 4.1 meq/L (3.5-5.1); Sodium 136 meq/L (136-145); Total Protein 7.4 g/dL (6.4-8.2)
[2017-11-29 17:41] LABS: Creatine Kinase 67 U/L (26-192)
--- NOTE | 2017-11-29 18:07 | ED ---
HPI General Chief Complaint: Chest Pain Stated Complaint: chest Pain Time Seen by Provider: 11/29/17 16:19 Source: patient Mode of arrival: ambulatory Limitations: no limitations History of Present Illness HPI narrative: Patient is a 52-year-old female presenting to emerge from for evaluation of chest pain. Patient states it started a few days ago. She states it is in the left anterior chest wall, stabbing and cramping in nature. It is intermittent. She states her left arm feels heavy and numb at times. He states it feels as if she has a knot in her chest. Patient is currently pain- free. She denies any nausea, vomiting, headache, dizziness, shortness of breath , abdominal pain. Patient's past medical history is significant for type 2 diabetes, bipolar disorder, hypertension. Family history is significant for her father dying at 46, heart attack. Patient denies any tobacco or alcohol use. MD complaint: chest pain STEMI Alert: No Onset (ago): day(s) Duration: intermittent Pain location: left chest Severity: moderate Severity scale (1-10): 6 Quality: sharp Relieving factors: nothing Exacerbating factors: nothing Treatments prior to arrival chest pain: none Related Data Home Medications Medication Instructions Recorded Confirmed divalproex [Depakote] 750 mg PO BID 11/29/17 11/29/17 empagliflozin [Jardiance] 10 mg PO DAILY 11/29/17 11/29/17 escitalopram oxalate [Lexapro] 10 mg PO DAILY 11/29/17 11/29/17 gabapentin 600 mg PO DAILY 11/29/17 11/29/17 gabapentin 900 mg PO HS 11/29/17 11/29/17 insulin glargine [Basaglar KwikPen 10 unit SUB-Q DAILY 11/29/17 11/29/17 U-100 Insulin] lisinopril 10 mg PO DAILY 11/29/17 11/29/17 Allergies Allergy/AdvReac Type Severity Reaction Status Date / Time iodine Allergy Severe SWELLING Verified 11/29/17 16:26 morphine Allergy Severe HEART Verified 11/29/17 16:26 COMPLICATIONS potassium iodide Allergy Severe SWELLING Verified 11/29/17 16:26 povidone-iodine Allergy Severe SWELLING Verified 11/29/17 16:26 sodium iodide Allergy Severe SWELLING Verified 11/29/17 16:26 sodium iodide Allergy Severe SWELLING Verified 11/29/17 16:26 *MDRO Multi-Drug Resistant AdvReac Unknown Dehydration Uncoded 11/29/17 16:26 Organism Review of Systems ROS: all other systems reviewed are negative PMFSH Medical History Medical History Bipolar 1 disorder (Acute) Depression (Acute) Diabetes (Acute) Social History Social History Substance History: No History of Abuse Second Hand Smoke Exposure: Yes Smoking Status: Never smoker How Often Do You Have a Drink Containing Alcohol: Monthly or less Recent Travel in [facility] within the Last 8 Weeks: No Recent Out of Country Travel within the Last 8 Weeks: No Immunization History Tetanus Immunization: Unsure Hx Influenza Vaccine This Season: No Exam Narrative Exam Narrative: GENERAL: Well-developed, well-nourished, alert female. Presenting in no acute distress. SKIN: Focused skin assessment warm/dry. HEAD: Atraumatic. Normocephalic. EYES: Pupils equal and round. No scleral icterus. No injection or drainage. ENT: No nasal bleeding or discharge. Mucous membranes pink and moist. NECK: Trachea midline. No JVD. CARDIOVASCULAR: Regular rate and rhythm. No murmur appreciated. RESPIRATORY: No accessory muscle use. Clear to auscultation. Breath sounds equal bilaterally. GASTROINTESTINAL: Abdomen soft, non-tender, nondistended. Hepatic and splenic margins not palpable. MUSCULOSKELETAL: No obvious deformities. No clubbing. No cyanosis. No edema. NEUROLOGICAL: Awake and alert. No obvious cranial nerve deficits. Motor grossly within normal limits. Normal speech. PSYCHIATRIC: Appropriate mood and affect; insight and judgment normal. Course Initial Documented Vital Signs Temperature 97.9 F 11/29/17 15:52 Pulse Rate 100 H 11/29/17 15:52 Respiratory Rate 14 11/29/17 15:52 Blood Pressure 143/64 H 11/29/17 15:52 Pulse Oximetry 98 11/29/17 15:52 Last Documented Vital Signs Temperature 97.9 F 11/29/17 15:52 Pulse Rate 71 11/29/17 18:45 Respiratory Rate 22 11/29/17 18:45 Blood Pressure 137/72 11/29/17 18:45 Pulse Oximetry 97 11/29/17 18:45 Medical Decision Making MDM Narrative Medical decision making narrative: Patient is well-appearing 52-year-old female presenting for evaluation of left anterior chest wall pain that started a few days ago. Patient's vital signs are stable, patient was placed on telemetry monitoring and continuous pulse oximetry. Labs reviewed, no acute findings in a fight other than blood glucose of 426. Chest x-ray shows no acute disease. Discussed findings with my attending physician. Patient will be placed in chest pain center for further evaluation. 10 units of regular insulin subcu was ordered for the blood glucose of 126. Medical Screen Exam Complete: Yes Emergency Medical Condition: Yes Differential Diagnosis Differential Diagnosis: Costochondritis versus metabolic abnormality versus cardiac arrhythmia versus ACS versus other Lab Data Lab results reviewed: Yes I reviewed the patient's lab results. Result diagrams: 11/29/17 16:48 11/29/17 16:48 Lab Results 11/29/17 11/29/17 11/29/17 Range/Units 16:48 16:48 16:48 WBC 5.5 (4.0-11.0) th/mm3 RBC 4.29 (4.00-5.30) mil/mm3 Hgb 13.6 (11.6-15.3) gm/dL Hct 41.7 (35.0-46.0) % MCV 97.2 (80.0-100.0) fL MCH 31.8 (27.0-34.0) pg MCHC 32.7 (32.0-36.0) % RDW 13.3 (11.6-17.2) % Plt Count 189 (150-450) th/mm3 MPV 9.0 (7.0-11.0) fL Neut % (Auto) 57.6 (16.0-70.0) % Lymph % (Auto) 31.9 (9.0-44.0) % [place] % (Auto) 8.8 H (0.0-8.0) % Eos % (Auto) 1.2 (0.0-4.0) % Baso % (Auto) 0.5 (0.0-2.0) % Neut # (Auto) 3.2 (1.8-7.7) th/mm3 Lymph # (Auto) 1.8 (1.0-4.8) th/mm3 [place] # (Auto) 0.5 (0.0-0.9) th/mm3 Eos # (Auto) 0.1 (0.0-0.4) th/mm3 Baso # (Auto) 0.0 (0.0-0.2) th/mm3 WBC Differential . Differential Comment Auto diff final PT 9.1 L (9.8-11.6) sec INR 0.9 Ratio APTT 22.7 L (24.3-30.1) sec Sodium 136 (136-145) meq/L Potassium 4.1 (3.5-5.1) meq/L Chloride 98 (98-107) meq/L Carbon Dioxide 30.0 (21.0-32.0) meq/L Anion Gap 8 (5-15) meq/L BUN 13 (7-18) mg/dL Creatinine 0.76 (0.50-1.00) mg/dL Estimated GFR 79 L (>89) mL/min Random Glucose 426 H (74-106) mg/dL Calcium 8.3 L (8.5-10.1) mg/dL Magnesium 2.2 (1.5-2.5) mg/dL Total Bilirubin 0.2 (0.2-1.0) mg/dL AST 7 L (15-37) U/L ALT 14 (10-53) U/L Alkaline Phosphatase 68 (45-117) U/L Total Creatine Kinase 67 (26-192) U/L Troponin I Less than 0.02 L (0.02-0.05) ng/mL Total Protein 7.4 (6.4-8.2) g/dL Albumin 3.4 (3.4-5.0) g/dL Lipase 123 (73-393) U/L Imaging Data Radiologist's impression: Chest X-Ray 11/29/17 16:19 CONCLUSION: Negative examination. No definite evidence of pneumothorax Discharge Plan Discharge Disposition Patient Disposition: 30 Still Patient Discharge Condition Condition: Stable Discharge Details Diagnosis: Chest pain Physicians Team ED Provider: Zev Phelps ED Midlevel Provider: Marbella Hoffman Primary Care Provider: Gil Miranda Rxs /Orders / Referrals /Forms Prescriptions: No Action divalproex [Depakote] 250 mg Tablet,Delayed Release (Dr/Ec) 750 mg PO BID RF: 0 lisinopril 10 mg Tablet 10 mg PO DAILY RF: 0 gabapentin 300 mg Capsule 600 mg PO DAILY RF: 0 escitalopram oxalate [Lexapro] 10 mg Tablet 10 mg PO DAILY RF: 0 insulin glargine [Basaglar KwikPen U-100 Insulin] 100 unit/mL (3 mL) Insulin Pen 10 unit SUB-Q DAILY RF: 0 gabapentin 300 mg/6 mL (6 mL) Solution 900 mg PO HS RF: 0 empagliflozin [Jardiance] 10 mg Tablet 10 mg PO DAILY RF: 0 Discharge Instructions Patient Printed Instructions: Chest Pain (ED) Discharge Interventions Interventions: Vital Signs Last Done: 11/29/17 15:52 Status ED Status: With Doctor
[2017-11-29] MEDS ORDERED: Acetaminophen 500 MG Tablet PO PRN (18:44)
[2017-11-29 20:32] LABS: Creatine Kinase 123 U/L (26-192)
[2017-11-29 20:33] LABS: Creatine Kinase 120 U/L (26-192)
[2017-11-29 21:16] VITALS: RESP 16
[2017-11-30 01:18] LABS: Creatine Kinase 40 U/L (26-192)
[2017-11-30 07:19] VITALS: BP 109/58; TEMP 98.1
[2017-11-30 08:10] VITALS: O2SAT 96
--- NOTE | 2017-11-30 08:41 | P.HPCA ---
History of Present Illness Primary Care Physician: Gil Miranda MD Chief Complaint: Chest pain History of Present Illness: 52-year-old female with history of type 2 diabetes and bipolar disorder presents emergency room for further evaluation of nonexertional chest tightness. Onset 2 days ago. Location substernal. Characterizes tightness with intermittent sharp pains. Duration Tuesday constant, since followed with intermittent chest tightness. Unable to give accurate duration when experiences chest tightness. Associated symptoms include dyspnea and fatigue.. Denies nausea, vomiting, or diaphoresis. No precipitating or relieving factors. Endorses similar pain approximately 2 years ago, stating multiple cardiac testing completed at that time all found to be unremarkable. Non-smoker. No recent illness, fever, or injury. Past cardiac testing Social history No known coronary artery disease or hypertension. Known type 2 diabetes and hyperlipidemia. Taking lisinopril, likely due to diabetes diagnoses. Denies smoking history. No alcohol or recreational drug use. Works as a [employer]. Family history Father age 46 [place]. Younger brothers also have had either CVA or [place], details limited. - Diagnosis (1) Chest pain of uncertain etiology (2) Type II diabetes mellitus (3) History of bipolar disorder Review of Systems All other systems reviewed negative except as stated in HPI PMFSH - History History Provided By: Patient - Medical History Medical History: Medical History (Last Updated 11/30/17 @ 11:33 by JONNIE Cespedes) Bipolar 1 disorder Depression Type 2 diabetes mellitus - Family History Family History: Family History (Last Updated 11/30/17 @ 11:35 by JONNIE Cespedes) Father Myocardial infarction Brother CVA (cerebral vascular accident) - Social History I have reviewed the patient's Social History: Yes - Tobacco History Second Hand Smoke Exposure: Yes Tobacco Use In Past 30 Days: No Smoking Status: Never smoker - Alcohol History How Often Do You Have a Drink Containing Alcohol: Monthly or less - Substance Use History Substance History: No History of Abuse - Travel History Recent Travel in the [place] Within the Last 8 Weeks: No Recent Travel Out of the Country Within the Last 8 Weeks: No - Immunization History Tetanus Immunization: Unsure Hx Influenza Vaccine This Season: No Medications and Allergies Active Medications: Active Medications Acetaminophen (Tylenol) 500 mg PO Q4H PRN PRN Reason: HEADACHE Ondansetron HCl (Zofran Inj) 4 mg IV.PUSH Q6H PRN PRN Reason: NAUSEA Sodium Chloride (Ns Flush) 2 ml IV.FLUSH UNSCH PRN PRN Reason: FLUSH AFTER USING IV ACCESS Sodium Chloride (Ns Flush) 2 ml IV.FLUSH BID BENJAMÍN Last Admin: 11/29/17 21:12 Dose: 2 ml Sodium Chloride (Ns Flush) 2 ml IV.FLUSH PRN PRN PRN Reason: FLUSH AFTER USING IV ACCESS Allergies Allergy/AdvReac Type Severity Reaction Status Date / Time iodine Allergy Severe SWELLING Verified 11/29/17 16:26 morphine Allergy Severe HEART Verified 11/29/17 16:26 COMPLICATIONS potassium iodide Allergy Severe SWELLING Verified 11/29/17 16:26 povidone-iodine Allergy Severe SWELLING Verified 11/29/17 16:26 sodium iodide Allergy Severe SWELLING Verified 11/29/17 16:26 sodium iodide Allergy Severe SWELLING Verified 11/29/17 16:26 *MDRO Multi-Drug Resistant AdvReac Unknown Dehydration Uncoded 11/29/17 16:26 Organism Home Medications Medication Instructions Recorded Confirmed Type divalproex [Depakote] 750 mg PO BID 11/29/17 11/29/17 History empagliflozin [Jardiance] 10 mg PO DAILY 11/29/17 11/29/17 History escitalopram oxalate [Lexapro] 10 mg PO DAILY 11/29/17 11/29/17 History gabapentin 600 mg PO DAILY 11/29/17 11/29/17 History gabapentin 900 mg PO HS 11/29/17 11/29/17 History insulin glargine [Basaglar KwikPen 10 unit SUB-Q DAILY 11/29/17 11/29/17 History U-100 Insulin] lisinopril 10 mg PO DAILY 11/29/17 11/29/17 History Exam Vital signs: Vital Signs 11/29/17 15:52 11/29/17 17:16 11/29/17 18:45 Temperature 97.9 F Pulse Rate 100 H 78 71 Respiratory Rate 14 22 22 Blood Pressure 143/64 H 140/85 137/72 Pulse Oximetry 98 95 97 11/29/17 20:25 11/29/17 21:15 11/29/17 23:44 Temperature 98.7 F 97.8 F Pulse Rate 74 71 Respiratory Rate 16 16 Blood Pressure 97/58 L 107/59 L Pulse Oximetry 97 100 95 11/30/17 00:03 11/30/17 03:41 11/30/17 04:07 Temperature 98.6 F Pulse Rate 68 65 71 Respiratory Rate 16 Blood Pressure 115/63 Pulse Oximetry 94 L 11/30/17 07:16 11/30/17 08:09 Temperature 98.1 F Pulse Rate 71 Respiratory Rate 16 Blood Pressure 109/58 L Pulse Oximetry 92 L 96 Intake & Output 11/29/17 11/30/17 11/30/17 18:59 06:59 18:59 Weight 53.07 kg 53.07 kg Other: Weight On Admission 53.07 kg Narrative: GENERAL: Alert WN, WD, NAD, pleasant, female who appears older than stated age HEAD: NC, AT EYES: Sclera clear, conjunctiva without injection ENT: Mucous membranes pink and moist NECK: Supple, no masses, trachea midline CV: RRR, without murmur, rub, or gallop. S1-S2 RESP: Clear lungs throughout bilateral, no crackles, wheeze, rhonchi, symmetrical chest rise, nonlabored, able to speak in full sentences ABD: Soft, NT, ND, no masses, positive bowel tones EXT: Pulses +2x4, no dependent edema MS: Normal tone x4 extremities, nontender, no obvious deformities, full range of motion NEURO: CN II through CN XII grossly intact, motor strength 5/5, gait WNL PSYCH: A+O x3, flat affect, appropriate speech, slight anxious mood, appropriate insight and judgment SKIN: Normal turgor, normal texture, no lesions, no rashes, solar damage Results 11/29/17 16:48 11/29/17 16:48 Cardiac Enzymes 11/29/17 11/29/17 11/29/17 Range/Units 16:48 19:55 19:55 AST 7 L (15-37) U/L Troponin I Less than 0.02 L Less than 0.02 L Less than 0.02 L (0.02-0.05) ng/mL 11/30/17 Range/Units 00:25 AST (15-37) U/L Troponin I Less than 0.02 L (0.02-0.05) ng/mL Coagulation 11/29/17 Range/Units 16:48 PT 9.1 L (9.8-11.6) sec APTT 22.7 L (24.3-30.1) sec CBC 11/29/17 Range/Units 16:48 WBC 5.5 (4.0-11.0) th/mm3 RBC 4.29 (4.00-5.30) mil/mm3 Hgb 13.6 (11.6-15.3) gm/dL Hct 41.7 (35.0-46.0) % Plt Count 189 (150-450) th/mm3 Neut # (Auto) 3.2 (1.8-7.7) th/mm3 Lymph # (Auto) 1.8 (1.0-4.8) th/mm3 [place] # (Auto) 0.5 (0.0-0.9) th/mm3 Eos # (Auto) 0.1 (0.0-0.4) th/mm3 Baso # (Auto) 0.0 (0.0-0.2) th/mm3 Comprehensive Metabolic Panel 11/29/17 Range/Units 16:48 Sodium 136 (136-145) meq/L Potassium 4.1 (3.5-5.1) meq/L Chloride 98 (98-107) meq/L Carbon Dioxide 30.0 (21.0-32.0) meq/L BUN 13 (7-18) mg/dL Creatinine 0.76 (0.50-1.00) mg/dL Calcium 8.3 L (8.5-10.1) mg/dL AST 7 L (15-37) U/L ALT 14 (10-53) U/L Alkaline Phosphatase 68 (45-117) U/L Total Protein 7.4 (6.4-8.2) g/dL Albumin 3.4 (3.4-5.0) g/dL Intake and Output 11/29/17 11/30/17 11/30/17 22:59 06:59 14:59 Other: Weight 53.07 kg Weight On Admission 53.07 kg EKG interpretations - EKG EKG results cardiology: sinus rhythm, normal axis, normal QRS, normal ST/T Caprini VTE Risk Assessment Caprini VTE Risk Assessment: No/Low Risk (score <= 1) Caprini Risk Assessment Model: Point Value = 1 Point Value = 2 Point Value = 3 Point Value = 5 Age 41-60 Minor surgery BMI > 25 kg/m2 Swollen legs Varicose veins or History of unexplained or recurrent spontaneous Oral contraceptives or hormone replacement Sepsis (< 1 month) Serious lung disease, including pneumonia (< 1 month) Abnormal pulmonary function Acute myocardial infarction Congestive heart failure (< 1 month) History of inflammatory bowel disease Medical patient at bed rest Age 61-74 Arthroscopic surgery Major open surgery (> 45 min) Laparoscopic surgery (> 45 min) Malignancy Confined to bed (> 72 hours) Immobilizing plaster cast Central venous access Age >= 75 History of VTE Family history of VTE Factor V Leiden Prothrombin [id number] Lupus anticoagulant Anticardiolipin antibodies Elevated serum homocysteine Heparin-induced thrombocytopenia Other congenital or acquired thrombophilia Stroke (< 1 month) Elective arthroplasty Hip, pelvis, or leg fracture Acute spinal cord injury (< 1 month) Prophylaxis Regimen: Total Risk Factor Score Risk Level Prophylaxis Regimen 0-1 Low Early ambulation 2 Moderate Order ONE of the following: *Sequential Compression Device (SCD) *Heparin 5000 units SQ BID 3-4 Higher Order ONE of the following medications: *Heparin 5000 units SQ TID *Enoxaparin/Lovenox 40 mg SQ daily (WT < 150 kg, CrCl > 30 mL/min) *Enoxaparin/Lovenox 30 mg SQ daily (WT < 150 kg, CrCl > 10-29 mL/min) *Enoxaparin/Lovenox 30 mg SQ BID (WT < 150 kg, CrCl > 30 mL/min) AND/OR *Sequential Compression Device (SCD) 5 or more Highest Order ONE of the following medications: *Heparin 5000 units SQ TID (Preferred with Epidurals) *Enoxaparin/Lovenox 40 mg SQ daily (WT < 150 kg, CrCl > 30 mL/min) *Enoxaparin/Lovenox 30 mg SQ daily (WT < 150 kg, CrCl > 10-29 mL/min) *Enoxaparin/Lovenox 30 mg SQ BID (WT < 150 kg, CrCl > 30 mL/min) AND *Sequential Compression Device (SCD) Assessment and Plan - Assessment (1) Chest pain of uncertain etiology Code(s): R07.89 - Other chest pain Status: Acute Plan: Admitted chest pain center. ACS ruled out with 4 sets of EKGs and cardiac enzymes. Seen and evaluated by Dr. Ck Mathews. Proceed with myocardial perfusion cardiac testing this morning. If unremarkable, plans to discharge home with follow-up with PCP. (2) Type II diabetes mellitus Code(s): E11.9 - Type 2 diabetes mellitus without complications Status: Chronic Plan: SSI low dose coverage. Hold home medication regimen until cardiac testing completed. (3) History of bipolar disorder Code(s): Z86.59 - Personal history of other mental and behavioral disorders Status: Chronic Plan: Continue Depakote and Lexapro. H&P: Quality - VTE Deep Vein Thrombosis/Pulmonary Embolism Present on Admission: No (2) Type II diabetes mellitus Qualifiers: Diabetes mellitus usp insulin use: unspecified usp insulin use status Diabetes mellitus complication status: with unspecified complications Qualified Code(s): E11.8 - Type 2 diabetes mellitus with unspecified complications
[2017-11-30] MEDS ORDERED: Dextrose 50% in Water 50 ML Vial IV.PUSH PRN (08:42)
[2017-11-30] MEDS ORDERED: Regadenoson Inj 0.4 MG/5 ML Syringe IV.PUSH ONE (09:30)
[2017-11-30] MEDS ORDERED: Escitalopram 10 MG Tablet PO SCH (11:45)
[2017-11-30] MEDS ORDERED: Divalproex 250 MG DR Tablet PO SCH (11:45)
[2017-11-30] MEDS ORDERED: Lisinopril 10 MG Tablet PO SCH (11:45)
[2017-11-30] MEDS ORDERED: Insulin NovoLOG Aspart Correctional Sugar Inj SQ SCH (12:00)
--- NOTE | 2017-11-30 12:10 | NM ---
EXAM DATE: 11/30/2017 11:56 AM EDT AGE/SEX: 52 years / Female INDICATIONS:Angina. . Left chest pain with left arm numbness. CLINICAL DATA: This is the patient's initial encounter. Patient reports that signs and symptoms have been present for 4 - 6 days and indicates a pain score of 6/10. MEDICAL/SURGICAL HISTORY: Diabetes mellitus type II. None. COMPARISON: [facility], CHEST 1V SINGLE AP, 11/29/2017. . DOSE: 8.8 mCi Tc 99m Myoview at rest 25.4 mCi [id number] at stress 0.4 mg Lexiscan STRESS SYMPTOMS: Nausea and vomiting. Chest pressure. EJECTION FRACTION: >70 % TECHNIQUE: The patient underwent pharmacologic stress with infusion of prescribed dose. Continuous ECG tracing was monitored during stress. Gated SPECT imaging was performed after stress and conventi onal SPECT imaging was performed at rest. The examination was performed on a SPECT/CT scanner, both attenuation and non-corrected datasets were reviewed. FINDINGS: Distribution: The maximum perfused segment at stress is in the anterolateral wall. Perfusion Study: The pattern of perfusion at stress is within normal limits. Slightly decreased per fusion to the low anterior wall, stable at rest, possible breast attenuation. Gated Study: There are intact wall motion and wall thickening without hypokinetic or dyskinetic segm ents. The ejection fraction is calculated at >70%. RISK CATEGORY: Low (<1% Annual Motality Rate) CONCLUSION: 1. Negative examination. Electronically signed by: Zev Huff MD 11/30/2017 12:09 PM EDT
[2017-11-30 14:15] VITALS: PULSE 69
--- NOTE | 2017-11-30 14:16 | ECG ---
Date Performed: 11/30/2017 Time Performed: 00:37:47 PTAGE: 52 years EKG: Sinus rhythm NORMAL ECG PREVIOUS TRACING : 11/29/2017 21.53 Since previous tracing, no significant change noted DOCTOR: Ck Mathews Interpretating Date/Time 11/30/2017 14:15:29
--- NOTE | 2017-11-30 14:21 | ECG ---
Date Performed: 11/29/2017 Time Performed: 21:53:15 PTAGE: 52 years EKG: Sinus rhythm NORMAL ECG PREVIOUS TRACING : 11/29/2017 20.05 Since previous tracing, no significant change noted DOCTOR: Ck Mathews Interpretating Date/Time 12/06/2017 08:47:15
--- NOTE | 2017-11-30 14:21 | ECG ---
Date Performed: 11/29/2017 Time Performed: 20:05:41 PTAGE: 52 years EKG: Sinus rhythm NORMAL ECG NO PREVIOUS TRACING DOCTOR: Ck Mathews Interpretating Date/Time 11/30/2017 14:19:37
--- NOTE | 2017-11-30 14:21 | ECG ---
Date Performed: 11/29/2017 Time Performed: 16:43:55 PTAGE: 52 years EKG: Sinus rhythm NORMAL ECG PREVIOUS TRACING : 10/21/2016 09.13 Since previous tracing, no significant change noted DOCTOR: Ck Mathews Interpretating Date/Time 11/30/2017 14:19:47
--- NOTE | 2017-11-30 15:21 | TR ---
Date Performed: 11/30/2017 Time Performed: 09:32:26 DOCTOR: Ck Mathews DRUG LIST: CLINICAL HISTORY: REASON FOR TEST: REASON FOR ENDING: OBSERVATION: CONCLUSION: COMMENTS: Lexiscan stress test was performed under standard four minute protocol. Radionuclide was injected one minute prior to ending the test. No electrocardiographic abormalities were present t o suggest ischemia. Nuclear imaging and interpretation are pending.
== END 2017-11-30 14:14 | disposition home or self-care (01) ==
LOC: NEPC 15:46 → NEDA 15:46 → NEPGCP 20:26
PROVIDERS: ADMIT Internal Medicine Interventional Cardiology; ATTEND Internal Medicine Interventional Cardiology